=== PATIENT | female | born 2000 | race Caucasian/White ===

== ENCOUNTER 2023-02-07 09:11 | Outpatient (OUT) | payer BC, SELFPAY ==
[2023-02-07 09:29] LABS: Amphetamine Screen Urine NEGATIVE (NEGATIVE); Barbiturates Screen Urine NEGATIVE (NEGATIVE); Benzodiazepines Screen Urine NEGATIVE (NEGATIVE); Buprenorphine Screen Urine NEGATIVE (NEGATIVE); Cannabinoid Screen Urine NEGATIVE (NEGATIVE); Cocaine Screen Urine NEGATIVE (NEGATIVE); Methadone Screen Urine NEGATIVE (NEGATIVE); Methamphetamines Screen Urine NEGATIVE (NEGATIVE); Opiate Screen Urine NEGATIVE (NEGATIVE); Oxycodone Screen Urine NEGATIVE (NEGATIVE); Phencyclidine Screen Urine NEGATIVE (NEGATIVE); Tricyclic Antidepressant Urine NEGATIVE (NEGATIVE)
== END 2023-02-07 09:12 | disposition home or self-care (01) ==
LOC: LAB 09:11
PROVIDERS: PCP Family Medicine; Visit Provider Family Medicine
DX: Z02.0 Encounter for examination for admission to educational institution (principal)
CPT/HCPCS: 80307

== ENCOUNTER 2023-05-10 10:19 | Outpatient (OUT) | payer BC, SELFPAY ==
--- NOTE | 2023-05-10 10:22 | US_ITS ---
[address] [address] Patient Name: LEXY LEONARD MRN: [id number] date: 2000 Sex: F Assigned Patient Location: US Current Patient Location: US Accession/Order Number: [id number] Exam Date: 05/10/2023 10:30 Report Date: 05/10/2023 12:01 At the request of: SERJIO COY Procedure: US pelvis w/ transvaginal EXAMINATION: US pelvis w/ transvaginal HISTORY: Dysfunctional Uterine Bleeding N93.8, Pelvic PAin R10.2 COMPARISON: No relevant comparison available. FINDINGS: The uterus is normal in size, contour and echotexture measuring 6.2 x 4.5 x 2.7 cm. Anteverted. Linear hyperechogenicity within the endometrial cavity consistent with normally positioned IUD. The endometrium measures 2.7 mm thick. Small amount of endometrial fluid, nonspecific The right ovary is normal measuring 2.4 x 2.9 x 1.5 cm. Normal color and Doppler flow. Left ovary is normal in appearance measuring 3.1 x 2.2 x 2.4 cm. Normal color and Doppler flow No free fluid US/US pelvis w/ transvaginal IMPRESSION: Normally positioned IUD Electronically authenticated by: PHILIPP LAU Date: 05/10/2023 12:01
== END 2023-05-10 10:20 | disposition home or self-care (01) ==
LOC: US 10:19
PROVIDERS: Visit Provider Obstetrics & Gynecology
DX: N93.8 Other specified abnormal uterine and vaginal bleeding (principal); R10.2 Pelvic and perineal pain
CPT/HCPCS: 76830; 76856

== ENCOUNTER 2023-06-07 09:00 | Outpatient (OUT) | payer BC, SELFPAY ==
[2023-06-08 07:08] LABS: Hepatitis B Surf Ab Quant >1000.0 mIU/mL (Immunity>9.9)
== END 2023-06-07 09:01 | disposition home or self-care (01) ==
LOC: LAB 09:02
PROVIDERS: PCP Family Medicine; Visit Provider Family Medicine
DX: Z00.8 Encounter for other general examination (principal)
CPT/HCPCS: 36415; 86706

== ENCOUNTER 2023-07-09 10:15 | Outpatient (OUT) | payer BC, SELFPAY ==
[2023-07-09 10:44] LABS: Amphetamine Screen Urine NEGATIVE (NEGATIVE); Barbiturates Screen Urine NEGATIVE (NEGATIVE); Benzodiazepines Screen Urine NEGATIVE (NEGATIVE); Buprenorphine Screen Urine NEGATIVE (NEGATIVE); Cannabinoid Screen Urine NEGATIVE (NEGATIVE); Cocaine Screen Urine NEGATIVE (NEGATIVE); Methadone Screen Urine NEGATIVE (NEGATIVE); Methamphetamines Screen Urine NEGATIVE (NEGATIVE); Opiate Screen Urine NEGATIVE (NEGATIVE); Oxycodone Screen Urine NEGATIVE (NEGATIVE); Phencyclidine Screen Urine NEGATIVE (NEGATIVE); Tricyclic Antidepressant Urine NEGATIVE (NEGATIVE)
== END 2023-07-09 10:16 | disposition home or self-care (01) ==
LOC: LAB 10:16
PROVIDERS: PCP Family Medicine; Visit Provider Family Medicine
DX: Z00.8 Encounter for other general examination (principal)
CPT/HCPCS: 80307

== ENCOUNTER 2023-12-24 21:12 | Outpatient (REF) | payer BC, SELFPAY ==
--- OUTSIDE RECORDS SUMMARY | 2023-12-24 21:18 | XMS_ITS | CCD ---
Author Organization [facility] Care Team Providers Care Shroud Line Tier Name Role Phone SERENA, DR CHITRA Aparicio Attending Unavailable SERENA, DR CHITRA Aparicio Consulting Unavailable SERENA, DR CHITRA Aparicio Primary Care Unavailable LYONS, DR CHITRA Aparicio Admitting Unavailable LYONS, DR CHITRA Aparicio Attending Unavailable LYONS, DR CHITRA Aparicio Consulting Unavailable LYONS, DR CHITRA Aparicio Primary Care Unavailable LYONS, DR CHITRA Aparicio Admitting Unavailable LYONS, DR CHITRA Aparicio Attending Unavailable LYONS, DR CHITRA Aparicio Consulting Unavailable LYONS, DR CHITRA Aparicio Primary Care Unavailable SERENA, DR CHITRA Aparicio Admitting Unavailable Serena LOPEZ, Chitra Primary Care Provider [phone] Serena LOPEZ, Chitra Rea Primary Care Jimmie DALAL, Alice Hunter Attending Unavailable Diane DALAL, Christina Williamson Attending Unavailable Diane DALAL, Christina Williamson Attending Unavailable Serena LOPEZ, Chitra Rea Primary Care Jimmie Arnold MD, Tyler Souza Attending Unav Chitra Heath Unavailable CHITRA LYONS Primary Care Unavailable SERJIO COY Attending Unavailable Allergies Allergy Classification Reported Allergen(s) Allergy Type Date of Onset Reaction(s) Facility (1 source) No Known Medication Allergies; Translations: [No Known Medication Allergies] Propensity to adverse reactions to drug (disorder) [facility] Repository (3 sources) patient allergy list reviewed by nurse or physicia Propensity to adverse reactions 8 Comment:Done [facility] Other (3 sources) Allergies Reconciled Propensity to adverse reactions Unknown [facility] Other Medications Current Medications Medication Drug Class(es) Dates Sig (Normalized) Sig (Original) [id number] 200 actuat albuterol 0.09 mg/actuat metered dose inhaler (1 source) beta2-Adrenergic Agonist Start: 3 End: 3 take 2 puff(s) by inhalation every four hours as needed for wheezing albuterol sulfate HFA (PROVENTIL;VENTOLIN;P ROAIR) 108 (90 Base) MCG/ACT inhaler Inhale 2 puffs into the lungs every 4 hours as needed for Wheezing 8 g 0 09/25/2022 10/02/2022 Active azithromycin 250 mg oral tablet (6 sources) Macrolide Antimicrobial Start: 3 Azithromycin 250 MG as directed Orally 2 tabs po today, then 1 tab daily x 4 more days for 5 Sep, Active 12 hr guaiFENesin 600 mg extended release oral tablet (1 source) Start: 3 End: 3 take 1 tablet by mouth twice daily guaiFENesin (MUCINEX) 600 MG extended release tablet Take 1 tablet by mouth 2 times daily for 10 days 20 tablet 0 09/25/2022 10/05/2022 Active methylPREDNISolone 4 mg oral tablet (1 source) Corticosteroid Start: 3 End: 3 methylPREDNISolone (MEDROL DOSEPACK) 4 MG tablet Take by mouth. 1 kit 0 09/25/2022 10/01/2022 Active Problems Active Problems Problem Classification Problem Date Documented Date Episodic/Chronic Administrative/social admission (4 sources) Encounter for examination for admission to educational institution; Translations: [ENC EXAM ADMIS EDUCATIONAL INSTITUT] Onset: 07-05-2022 Episodic Allergic reactions (3 sources) Allergic contact dermatitis due to plants, except food; Translations: [Allergic contact dermatitis due to plants, except food] Episodic Chronic obstructive pulmonary disease and bronchiectasis (1 source) Bronchitis, not specified as acute or chronic Episodic Contraceptive and procreative management (9 sources) Surveillance of contraception; Translations: [Encounter for contraceptive management, unspecified] Resolved: 12-27-2021 Episodic Deficiency and other anemia (3 sources) Autoimmune hemolytic anemia; 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 Other endocrine disorders (3 sources) Delayed puberty; 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 Other injuries and conditions due to external causes (3 sources) History of fall; Translations: [History of falling] Episodic Other skin disorders (8 sources) Acne; Translations: [Acne, unspecified] Episodic Other skin disorders (1 source) Acne, unspecified; Translations: [Adult acne] Episodic Residual codes; unclassified (5 sources) H/O: blood transfusion; Translations: [Personal history of other medical treatment] Episodic Residual codes; unclassified (1 source) Personal history of other medical treatment; Translations: [History of blood transfusion] Episodic Residual codes; unclassified (3 sources) History of drug therapy; Translations: [Personal history of other drug therapy] Episodic Past or Other Problems Problem Classification Problem Date Documented Date Episodic/Chronic Acute and chronic tonsillitis (3 sources) Acute tonsillitis; Translations: [Acute tonsillitis, unspecified] Resolved: 08-03-2019 Episodic Conditions associated with dizziness or vertigo (3 sources) Dizziness and giddiness; Translations: [Dizziness and giddiness] Onset: 09-10-2016 Resolved: 08-03-2019 Episodic Genitourinary symptoms and ill-defined conditions (3 sources) Dysuria; Translations: [Dysuria] Onset: 02-18-2018 Resolved: 08-03-2019 Episodic Immunizations and screening for infectious disease (3 sources) Sexually transmitted infectious disease; Translations: [Encounter for screening for infections with a predominantly sexual mode of transmission] Resolved: 07-29-2020 Episodic Malaise and fatigue (3 sources) Malaise and fatigue; Translations: [Other malaise and fatigue] Onset: 04-22-2014 Episodic Nausea and vomiting (3 sources) Nausea and vomiting; Translations: [Nausea with vomiting, unspecified] Onset: 09-10-2016 Episodic Other circulatory disease (3 sources) Orthostatic hypotension; Translations: [Orthostatic hypotension] Onset: 09-10-2016 Resolved: 08-03-2019 Episodic Other connective tissue disease (3 sources) Pain in right foot; Translations: [Pain in right foot] Onset: 08-09-2015 Resolved: 08-03-2019 Episodic Other nutritional; endocrine; and metabolic disorders (3 sources) Underweight; Translations: [Underweight] Resolved: 07-29-2020 Episodic Other upper respiratory infections (8 sources) Acute upper respiratory infection; Translations: [Acute upper respiratory infection, unspecified] Onset: 09-10-2016 Resolved: 08-03-2019 Episodic Otitis media and related conditions (3 sources) Acute secretory otitis media; Translations: [Other acute nonsuppurative otitis media, left ear] Onset: 10-21-2015 Resolved: 08-03-2019 Episodic Residual codes; unclassified (3 sources) Not up to date with immunizations; Translations: [Underimmunization status] Resolved: 07-29-2020 Episodic Residual codes; unclassified (3 sources) Normal body mass index; Translations: [Body mass index (BMI) 24.0-24.9, adult] Resolved: 07-29-2020 Episodic Syncope (3 sources) Syncope and collapse; Translations: [Syncope and collapse] Onset: 04-21-2014 Resolved: 08-03-2019 Episodic Viral infection (6 sources) Viral disease; Translations: [Unspecified viral infection, in conditions classified elsewhere and of unspecified site] Onset: 11-21-2015 Resolved: 07-29-2020 Episodic Results Test Name Value Interpretation Reference Range Facility Hep Bs Abon 10-02-2022 Hep B Surface Antibody Interp Positive Normal [facility] Comment on above: Result Comment: Shani ent is considered to be immune to infection with HBV. Performed By: #### H BSAB #### [place] [id number] Hep Bs Ab >500.0 Normal [facility] Comment on above: Performed By: #### H BSAB #### [address] [address] Urgent Care Office/Clinic No ashok 10-01-2022 Urgent Care Office/Clinic Note Chief Complaint pt states since last saturday has been having body aches, cough, congestion. Was seen 09/25 @ [facility] and given inhaler, mucinex. has been using for a week with no relief. History of Present Illness 22-year-old female presents today due to an illness that started 6 days ago. She was seen at [facility] and diagnosed with an upper respiratory infection. She was given albuterol, Mucinex, and an oral steroid. 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 She tells video games storywriter she is fatigued as she is not able to sleep because of her cough. She denies any fevers or chills. She does have a runny nose. She denies any shortness of breath. She denies any sick contacts. Review of Systems General: No fever, chills, body aches. + fatigue. No unexplained weight loss or change in appetite. HEENT: No visual changes, blurred vision, or double vision. No eye pain. No ear pain. No change in hearing or tinnitus. No nasal drainage. + nasal congestion. No sinus pressure. No sore throat. Cardiovascular: No chest pain, palpitations, or syncope. Pulmonary: No shortness of breath, wheezing. + cough. GI: No nausea, vomiting or diarrhea. No abdominal pain. : No dysuria, hematuria, incontinence, frequency or urgency. Endocrine: No reports of sweating, cold or heat intolerance. No polyuria or polydipsia. Musculoskeletal: No weakness, joint pain, back pain. No myalgias. Neuro: No headache. No dizziness, syncope, paralysis, ataxia, numbness or tingling in the extremities. No decrease or change in sensory or motor function. Hematologic: No anemia, bleeding, or bruising. Psychiatric: No history of depression or anxiety Skin: Denies rashes or other acute changes. Physical Exam Vitals & Measurements HR: 72 (Peripheral) BP: 114/78 SpO2: 97 HT: 168 cm WT: 73 kg WT: 73 kg (Dosing) BMI: 25.86 General: The patient is well developed, well nourished, alert and oriented, in no distress Eyes: no conjunctivitis or drainage Ears: TMs are clear translucent with presence of fluid line good light reflex bilaterally. Both canals are without redness swelling or drainage Nose: Erythematous boggy turbinates with clear drainage bilaterally Sinuses: No maxillary or frontal tenderness. Throat: Mild erythema without exudate on the tonsils or swelling, +post nasal drainage Neck: No anterior cervical lymphadenopathy present bilaterally. No posterior cervical lymphadenopathy noted bilaterally Chest: Breath sounds clear without wheezing, Heart: RRR, no murmurs, rubs or gallops. Psych: Normal mood and affect Additional Vitals BP Position/Location: Sitting Assessment/Plan 1. Bronchitis Ordered: Discharge Patient Orders: benzonatate, 1 caps, Oral, TID, PRN, X 7 days, # 21 caps, 0 Refill(s), 10/08/22 11:08:00 EDT, Pharmacy: [facility]/pharmacy #[id number] predniSONE, 2 tabs, Oral, Daily, X 7 days, # 14 tabs, 0 Refill(s), 10/08/22 11:08:00 EDT, Pharmacy: [facility]/pharmacy #[id number] AMB Influenza POC POC SARS Antigen Card Take medications as prescribed. Increase fluid intake and rest. May take Tylenol and ibuprofen as directed on packaging, use a cool mist humidifier, Vicks Vapor rub, and elevating head of bed for sleep. Recommended patient start Zyrtec or Claritin 24-hour- take 1 tablet daily in a.m. Generic is OK. Recommended patient use Flonase, 2 sprays each nostril every AM. Delsym (dextromethorphan) every 12 hours as needed for dry cough. Continue with albuterol Q 4 hrs prn. Follow up with primary care physician in the next 5-7 days or sooner if needed. Go to emergency department for new or worsening of symptoms. Medical Decision Making Chronic conditions NOT treated during this visit that affected my overall medical decision making: Treatment plans discussed but not opted for at this time: Prescribed medication that requires intensive monitoring for toxicity: I have reviewed the patient?s medication list for medication interactions/contrai ndications and/or for upcoming procedures: yes Time Spent with the Patient I have personally spent [] minutes on this date, directly related to today's patient visit, including pre and post visit work, for this date of service. Time listed does not include time spent on separately billable services. Problem List/Past Medical History Ongoing No qualifying data Historical No qualifying data Medications No active medications Allergies No Known Medication Allergies Social History Tobacco Never (less than 100 in lifetime) Use:. Electronically signed by Alice Garcia 10/01/22 11:11 EDT Normal [facility] EKG 12-LEADon 09-25-2022 EKG 12-LEAD 69 69 136 94 398 426 58 65 26 Normal sinus rhythm Normal ECG No previous ECGs available Confirmed by RODRIGUEZ RIBEIRO ([id number]) on 09/25/2022 8:25:29 PM [email or web address] [email or web address]?[email or web address]=[id number]&Date=01-22-20 23&Time=09%3a39%3a52 %3a00&TestType=ECG&S ite=3&OutputType=PDF &Ext=PDF Normal [facility] Influenza virus A and B RNA and SARS-CoV-2 (COVID-19) N gene panel BRANDON+probe (Resp)on 09-25-2022 FLUAV RNA BRANDON+probe Ql (Resp) Not detected NOT DETECTED [employer] FLUBV RNA BRANDON+probe Ql (Resp) Not detected NOT DETECTED [facility] [employer] Comment on above: Performed at [facility] [employer] [facility] [address] [place] [address] SARS-CoV-2 (COVID-19) RNA BRANDON+probe Ql (Resp) Not detected NOT DETECTED [facility] [employer] Comment on above: Not Detected results do not preclude SARS-CoV-2 infection and should not be used as the sole basis for patient management decisions. Results must be combined with clinical observations, patient history, and epidemiological information. Testing was performed using [employer] SARS-CoV-2 and Influenza A/B nucleic acid assay. This test is a multiplex Real-Time Reverse Transcriptase Polymerase Chain Reaction (RT-PCR)-based in vitro diagnostic test intended for the qualitative detection of nucleic acids from SARS-CoV-2, influenza A, and influenza B in nasopharyngeal and nasal swab specimens for use under the FDA s Emergency Use Authorization (EUA) only. Fact sheet for Healthcare Providers: https://www.fda.gov/media/274326/download Fact sheet for Patients: https://www.fda.gov/media/896693/download [employer] S. pyogenes Ag EIA Ql (Throa t)on 09-25-2022 S. pyogenes Ag Ql (Throat) Negative NEGATIVE [employer] S. pyogenes Org specific cx Ql (Throat) INDICATED [facility] [employer] Comment on above: Performed at [facility] [employer] [facility] [address] [place], [place] [id number] [employer] [employer] XR CHEST (2 VW)on 09-25-2022 1. No acute cardiopulmonary finding. This report has been created using voice recognition software. It may contain minor errors which are inherent in voice recognition technology. Final report electronically signed by Dr Beverley Dickerson on 09/25/2022 11:59 AM [facility] Beverley River MD - 09/25/2022 PROCEDURE: XR CHEST (2 VW) CLINICAL INFORMATION: cough, chest congestion COMPARISON: None TECHNIQUE: PA and lateral views of the chest performed. FINDINGS: No focal pulmonary consolidation. Cardiac silhouette is not enlarged. No pleural effusion. No pneumothorax. No acute bony abnormality. IMPRESSION: 1. No acute cardiopulmonary finding. This report has been created using voice recognition software. It may contain minor errors which are inherent in voice recognition technology. Final report electronically signed by Dr Beverley Dickerson on 09/25/2022 11:59 AM [employer] Phone: Radiology Study observation (narrative) [employer] Phone: XR CHEST (2 VW)Ordered By: Loree Dickerson on 09-25-2022 [employer] Phone: HEPATITIS B SURFACE ANTIBODY , QUANTon 07-06-2022 Hepatitis B Surf AB Quant >1000.0 Normal Immunity>9.9 [facility] Comment on above: Result Comment: Stat us of Immunity Anti-HBs Level Inconsistent with Immunity 0.0 - 9.9 Consistent with Immunity >9.9 Performed By: #### H EPBSRF #### [facility] [address] [place], [place] [address] Dr. Jesus Mei DRUG SCREEN RAPID (URINE)on 07-05-2022 AMP Negative Normal NEGATIVE [facility] Comment on above: Performed By: #### D RUGRPD #### [facility] [address] [place], [place] [address] Dr. Jesus Mei BAR Negative Normal NEGATIVE [facility] Comment on above: Performed By: #### D RUGRPD #### [facility] [address] [place] [address] Dr. Jesus Mei BUP Negative Normal NEGATIVE [facility] Comment on above: Performed By: #### D RUGRPD #### [facility] [address] [place] [address] Dr. Jesus Mei BZO Negative Normal NEGATIVE [facility] Comment on above: Performed By: #### D RUGRPD #### [facility] [address] [place] [address] Dr. Jesus Mei CHRISTINA Negative Normal NEGATIVE [facility] Comment on above: Performed By: #### D RUGRPD #### [facility] [address] [place] [address] Dr. Jesus Mei CUT-OFFS SEE BELOW Normal [facility] Comment on above: Result Comment: AMP (Amphetamine): 500ng/mL, BAR (Barbituates): 200 ng/mL, BZO (Benzodiazepines): 150 ng/mL, BUP (Buprenorphine): 10 ng/mL, CHRISTINA (Cocaine): 150 ng/mL, mAMP (Methamphetamine): 500 ng/mL, MTD (Methadone): 200 ng/mL, OPI (Opiates): 100 ng/mL, OXY (Oxycodone): 100 ng/mL, PCP (Phencyclidine): 25 ng/mL, PPX (Propoxyphene): 300 ng/mL, THC (Cannabinoids): 50 ng/mL, TCA (Trycyclic Antidepressants): 300 ng/mL Performed By: #### D RUGRPD #### [facility] [address] [place] [address] Dr. Jesus Mei DRUG CUT HEADER DRUG CLASS TEST SYSTEM CUT-OFF CONCENTRATIONS ARE FOLLOWS: Normal [facility] Comment on above: Performed By: #### D RUGRPD #### [facility] [address] [place] [address] Dr. Jesus Mei mAMP Negative Normal NEGATIVE [facility] Comment on above: Performed By: #### D RUGRPD #### [facility] [address] [place] [address] Dr. Jesus Mei MTD Negative Normal NEGATIVE [facility] Comment on above: Performed By: #### D RUGRPD #### [facility] [address] [place] [address] Dr. Jesus Mei OPI Negative Normal NEGATIVE [facility] Comment on above: Performed By: #### D RUGRPD #### [facility] [address] [place] [address] Dr. Jesus Mei OXY Negative Normal NEGATIVE [facility] Comment on above: Performed By: #### D RUGRPD #### [facility] [address] [place] [address] Dr. Jesus Mei PCP Negative Normal NEGATIVE [facility] Comment on above: Performed By: #### D RUGRPD #### [facility] [address] [place] [address] Dr. Jesus Mei PPX Negative Normal NEGATIVE [facility] Comment on above: Performed By: #### D RUGRPD #### [facility] [address] [place] [address] Dr. Jesus Mei TCA Negative Normal NEGATIVE [facility] Comment on above: Performed By: #### D RUGRPD #### [facility] [address] [place] [address] Dr. Jesus Mei THC Negative Normal NEGATIVE [facility] Comment on above: Performed By: #### D RUGRPD #### [facility] [address] [place] [address] Dr. Jesus Mei DRUG SCREEN RAPID (URINE)on 02-09-2022 AMP Negative Normal NEGATIVE [facility] Comment on above: Performed By: #### D RUGRPD #### [facility] [address] [place] [address] Dr. Jesus Mei BAR Negative Normal NEGATIVE [facility] Comment on above: Performed By: #### D RUGRPD #### [facility] [address] [place] [address] Dr. Jesus Mei BUP Negative Normal NEGATIVE [facility] Comment on above: Performed By: #### D RUGRPD #### [facility] [address] [place] [address] Dr. Jesus Mei BZO Negative Normal NEGATIVE [facility] Comment on above: Performed By: #### D RUGRPD #### [facility] [address] [place] [address] Dr. Jesus Mei CHRISTINA Negative Normal NEGATIVE [facility] Comment on above: Performed By: #### D RUGRPD #### [facility] [address] [place] [address] Dr. Jesus Mei CUT-OFFS SEE BELOW Normal [facility] Comment on above: Result Comment: AMP (Amphetamine): 500ng/mL, BAR (Barbituates): 200 ng/mL, BZO (Benzodiazepines): 150 ng/mL, BUP (Buprenorphine): 10 ng/mL, CHRISTINA (Cocaine): 150 ng/mL, mAMP (Methamphetamine): 500 ng/mL, MTD (Methadone): 200 ng/mL, OPI (Opiates): 100 ng/mL, OXY (Oxycodone): 100 ng/mL, PCP (Phencyclidine): 25 ng/mL, PPX (Propoxyphene): 300 ng/mL, THC (Cannabinoids): 50 ng/mL, TCA (Trycyclic Antidepressants): 300 ng/mL Performed By: #### D RUGRPD #### [facility] [address] [place] [address] Dr. Jesus Mei DRUG CUT HEADER DRUG CLASS TEST SYSTEM CUT-OFF CONCENTRATIONS ARE FOLLOWS: Normal [facility] Comment on above: Performed By: #### D RUGRPD #### [facility] [address] [place] [address] Dr. Jesus Mei mAMP Negative Normal NEGATIVE [facility] Comment on above: Performed By: #### D RUGRPD #### [facility] [address] [place] [address] Dr. Jesus Mei MTD Negative Normal NEGATIVE [facility] Comment on above: Performed By: #### D RUGRPD #### [facility] [address] [place] [address] Dr. Jesus Mei OPI Negative Normal NEGATIVE [facility] Comment on above: Performed By: #### D RUGRPD #### [facility] [address] [place] [address] Dr. Jesus Mei OXY Negative Normal NEGATIVE [facility] Comment on above: Performed By: #### D RUGRPD #### [facility] [address] [place] [address] [address] Jesus Mei PCP Negative Normal NEGATIVE [facility] Comment on above: Performed By: #### D RUGRPD #### [facility] [address] [place] [address] [address] Jesus Mei PPX Negative Normal NEGATIVE [facility] Comment on above: Performed By: #### D RUGRPD #### [facility] [address] [place] [address] Dr. Jesus Mei TCA Negative Normal NEGATIVE [facility] Comment on above: Performed By: #### D RUGRPD #### [facility] [address] [place] [address] Dr. Jesus Mei THC Negative Normal NEGATIVE [facility] Comment on above: Performed By: #### D RUGRPD #### [facility] [address] [place] [address] Dr. Jesus Mei C BP Strepon 10-19-2021 S. pyogenes Ag IA Ql (Unsp spec) Automatically ordered based on Negative Rapid Strep POC Test This is strictly a screening test for Strep Group A( Streptococcus pyogenes). No other pathogens will be noted. ------- Final Backup plate negative for Group A Streptococus Resulted at [facility] Comment on above: Performed By: #### B P #### [facility] [address] [place] [address] [facility] [address] [place] [address] Urgent Care Office/Clinic No ashok 10-17-2021 Urgent Care Office/Clinic Note Chief Complaint sore throat started Sat then woke up Saturday with loss of voice History of Present Illness Pleasant 21-year-old female presents for evaluation of sore throat that began 3 days ago and loss of voice that began 2 days ago. She reports that she has been afebrile. She does admit to some mild sinus congestion with rhinorrhea and intermittent dry cough. She denies chest pain, wheezing, shortness of breath, or GI concerns. Patient denies any known exposure to COVID-19 or other sick contacts. Denies history of strep pharyngitis. She has continued to tolerate adequate oral intake of food and fluids. Review of Systems General: No fever, chills, body aches or fatigue. No unexplained weight loss or change in appetite. HEENT: No visual changes, blurred vision, or double vision. No eye pain. No ear pain. No change in hearing or tinnitus. + Mild sinus congestion with rhinorrhea. No sinus pressure. + Sore throat. + Loss of voice. Cardiovascular: No chest pain, palpitations, or syncope. Pulmonary: + Intermittent dry cough. No wheezing or shortness of breath. GI: No nausea, vomiting or diarrhea. No abdominal pain. Musculoskeletal: No weakness, joint pain, back pain. Neuro: No headache. No dizziness. Skin: Denies rashes or other acute changes. Physical Exam Vitals & Measurements T: 36.5 ?C (Oral) HR: 63 (Peripheral) RR: 16 BP: 115/73 SpO2: 98 HT: 170 cm WT: 75 kg WT: 75 kg (Dosing) BMI: 25.95 General: Well-developed, in no acute distress. Neuro: Alert and oriented. Gait is steady. Speech is clear and appropriate. Eyes: PERRL. Conjunctiva clear without erythema or drainage. Nose: No erythema, edema, drainage. Ears: Canals visualized without any erythema, edema, or discharge. TM's visible and intact, pearly null. Good light reflex. Pharynx: Posterior oropharynx moist, pink without erythema, edema, or exudate. Mucous membranes moist. Voice hoarseness and intermittent loss of voice noted on exam. Neck: Trachea midline. No lymphadenopathy. Lungs: Respirations quiet, nonlabored, no audible wheezing. Musculoskeletal: Full AROM of the upper and lower extremities. Normal tone and strength 5/5 for both upper and lower extremities bilaterally. Skin: Warm, dry, intact. No rashes, lesions, or open wounds. Rapid strep: Negative Backup strep culture sent to the lab for evaluation with results pending. Additional Vitals No qualifying data available. Assessment/Plan 1. Laryngitis Strep today is negative. Will send for culture to [facility] and notify if it returns positive. Rest your voice until it recovers. Talk as little as possible. If your symptoms are severe, rest at home for a day or so. Drink warm liquids with honey. Breathing cool steam from a humidifier/vaporizer or in a steamy shower may be helpful. Drink plenty of fluids to stay well hydrated. Do not smoke. Follow-up with your family doctor in 1 week if no relief in symptoms. Go to the emergency department for any new or worsening symptoms. Orders: [id number] AMB Rapid Strep POC Medical Decision Making Patient is well and nontoxic-appearing upon evaluation. Vital signs are stable. Reviewed assessment and plan of care with patient. Patient verbalized understanding and agreed with plan. No further questions or concerns upon discharge. Chronic conditions NOT treated during this visit that affected my overall medical decision making: [] Treatment plans discussed but not opted for at this time: [] Prescribed medication that requires intensive monitoring for toxicity: [] I have reviewed the patient?s medication list for medication interactions/contrai ndications and/or for upcoming procedures: [yes] Time Spent with the Patient I have personally spent [12] minutes on this date, directly related to today's patient visit, including pre and post visit work, for this date of service. Time listed does not include time spent on separately billable services. Problem List/Past Medical History Ongoing No qualifying data Historical No qualifying data Medications No active medications Allergies No Known Medication Allergies Social History Tobacco Never (less than 100 in lifetime) Use:. Lab Results Test Name Test Result Date/Time Rapid Strep Test POC Negative 10/17/2021 15:08 EDT Electronically signed by Christina Martínez 10/17/21 15:20 EDT Normal [facility] DRUGS OF ABUSE 10 PANEL w/CO NFIRMon 07-19-2021 Amphetamines Screen, Urine Negative Normal Jpikmq=2009 [facility] Comment on above: Performed By: #### 1 0PDRUG #### [facility] [address] [address] [address] Jesus Mei Barbiturates Screen, Urine Negative Normal Tnwptv=205 [facility] Comment on above: Performed By: #### 1 0PDRUG #### [facility] [address] [address] [address] Jesus Mei Benzodiazepines Screen, Urine Negative Normal Krbsrw=454 [facility] Comment on above: Performed By: #### 1 0PDRUG #### [facility] [address] [address] [address] Jesus Mei Cannabinoid Screen, Urine Negative Normal Cutoff=20 [facility] Comment on above: Performed By: #### 1 0PDRUG #### [facility] [address] [address] [address] Jesus Mei Cocaine (Metab.) Screen, Urine Negative Normal Reicyu=561 [facility] Comment on above: Performed By: #### 1 0PDRUG #### [facility] [address] [address] [address] Jesus Mei Creatinine, Urine 45.9 mg/dL Normal 20.0-300.0 [facility] Comment on above: Performed By: #### 1 0PDRUG #### [facility] [address] [address] [address] Jesus Mei Methadone Screen, Urine Negative Normal Orwtsw=944 [facility] Comment on above: Performed By: #### 1 0PDRUG #### [facility] [address] [address] [address] Jesus Mei Opiate Screen, Urine Negative Normal Oldfbx=202 [facility] Comment on above: Result Comment: Opia te test includes Codeine, Morphine, Hydromorphone, Hydrocodone. Performed By: #### 1 0PDRUG #### [facility] [address] [place] [address] Dr. Jesus Mei Oxycodone/Oxymorphon e, Urine Negative Normal Ezjill=403 [facility] Comment on above: Result Comment: Test includes Oxycodone and Oxymorphone Performed By: #### 1 0PDRUG #### [facility] [address] [address] [address] Jesus Mei pH (U) 6.6 [pH] Normal 4.5-8.9 [facility] Comment on above: Performed By: #### 1 0PDRUG #### [facility] [address] [address] [address] Jesus Mei Phencyclidine Screen, Urine Negative Normal Cutoff=25 [facility] Comment on above: Performed By: #### 1 0PDRUG #### [facility] [address] [address] [address] Jesus Mei Please Note: Comment Normal [facility] Comment on above: Result Comment: Drug -test results should be interpreted in the context of clinical information. Patient metabolic variables, specific drug chemistry, and specimen characteristics can affect test outcome. Technical consultation is available if a test result is inconsistent with an expected outcome. ([email or web address] or call toll-free [phone]) . Drug brands, if listed herein, are trademarks of their respective owners. Performed By: #### 1 0PDRUG #### [facility] [address] [address] [address] Jesus Mei Propoxyphene Screen, Urine Negative Normal Uhuvbm=836 [facility] Comment on above: Performed By: #### 1 0PDRUG #### [facility] [address] [place] [address] Dr. Jesus Mei Vital Signs Date Time Vital Sign Value Performing Clinician Facility 10-12-2022 12:00-0400 Body height 167.64 cm Chitra Lyons Other [facility] Other 10-12-2022 12:00-0400 Body mass index (BMI) [Ratio] 26.31 kg/m2 Chitra Lyons Other [facility] Other 10-12-2022 12:00-0400 Body temperature 98.7 [degF] Chitra Lyons Other [facility] Other 10-12-2022 12:00-0400 Body weight 73.94 kg Chitra Lyons Other [facility] Other 10-12-2022 12:00-0400 Diastolic blood pressure 64 mm[Hg] Chitra Lyons Other [facility] Other 10-12-2022 12:00-0400 SaO2% (BldA) [Mass fraction] 98 % Chitra Lyons Other [facility] Other 10-12-2022 12:00-0400 Systolic blood pressure 110 mm[Hg] Chitra Lyons Other [facility] Other 09-25-2022 09:47-0500 Body temperature 97.5 [degF] Chitra Lyons MD Work Phone: [employer] 09-25-2022 09:43-0500 Body height 167.6 cm Chitra Lyons MD Work Phone: [employer] 09-25-2022 09:43-0500 Body mass index (BMI) [Ratio] 25.82 kg/m2 Chitra Lyons MD Work Phone: [employer] 09-25-2022 09:43-0500 Body weight 72.58 kg Chitra Lyons MD Work Phone: [employer] 09-25-2022 09:43-0500 Diastolic blood pressure 76 mm[Hg] Chitra Lyons MD Work Phone: [employer] 09-25-2022 09:43-0500 Heart rate 66 /min Chitra Lyons MD Work Phone: [employer] 09-25-2022 09:43-0500 Respiratory rate 16 /min Chitra Lyons MD Work Phone: [employer] 09-25-2022 09:43-0500 SaO2% (BldA) [Mass fraction] 100 % Chitra Lyons MD Work Phone: [facility] 09-25-2022 09:43-0500 Systolic blood pressure 124 mm[Hg] Chitra Lyons MD Work Phone: [facility] Encounters Encounter Date Encounter Type Care Provider Facility Start: 11-07-2023 End: 11-07-2023 ambulatory SERJIO COY Not Available Start: 07-05-2023 End: 07-05-2023 ambulatory Chitra Lyons Other [facility] Other Start: 07-05-2023 Physical examination Chitra Lyons [facility] Start: 07-05-2023 Telephone encounter Chitra Lyons [facility] Start: 06-11-2023 End: 06-11-2023 ambulatory Chitra Lyons Other [facility] Other Start: 06-11-2023 Telephone encounter Chitra Lyons [facility] Start: 06-05-2023 End: 06-05-2023 ambulatory Chitra Lyons Other [facility] Other Start: 06-05-2023 Physical examination Chitra Lyons [facility] [place] [facility] Start: 06-05-2023 Telephone encounter Chitra Lyons [facility] Start: 02-07-2023 End: 02-07-2023 ambulatory Chitra Lyons Other [facility] Other Start: 02-07-2023 Telephone encounter Chitra Lyons [facility] Start: 01-31-2023 End: 01-31-2023 ambulatory Chitra Lyons Other [facility] Other Start: 01-31-2023 Telephone encounter Chitra Lyons [facility] Start: 10-12-2022 End: 10-12-2022 ambulatory Chitra Lyons Other [facility] Other Start: 10-12-2022 Office outpatient vi sit 15 minutes Chitra Lyons [facility] Start: 10-02-2022 End: 10-03-2022 ambulatory Chitra Lyons MD Facility:[facility] Start: 10-01-2022 End: 10-01-2022 ambulatory Chitra Lyons MD Facility:[facility] Start: 09-25-2022 End: 09-25-2022 Emergency department patient visit CHITRA LYONS [facility] Start: 09-25-2022 End: 09-25-2022 Emergency department patient visit Chitra Lyons MD Work Phone: [facility] Comment on above: Acute upper respirat ory infection (Primary Dx) Start: 07-05-2022 End: 07-06-[address] CHITRA LYONS Facility:[facility] Start: 02-09-2022 End: 02-10-[address] CHITRA LYONS Facility:[facility] Start: 10-17-2021 End: 10-18-2021 ambulatory Christina Contreras FULL STACK DEVEL[employer]ASS [employer] Facility:[facility] Start: 07-17-2021 End: 07-18-[address] CHITRA LYONS Facility:[facility] Start: 07-29-2020 End: 07-29-2020 Gynecological examination normal Chitra Lyons Other [facility] Other Start: 08-03-2019 End: 08-03-2019 Well child visit Chitra Lyons Other [facility] Other Procedures Date Procedure Procedure Detail Performing Clinician Start: 09-25-2022 Radiologic exam ches t 2 views Shameka Merino FULL STACK DEVELOPER - [employer]ASS [employer] Work Phone: Start: 09-25-2022 Streptococcus pyogen es Ag [Presence] in Throat by Immunoassay Shameka Merino FULL STACK DEVELOPER - GLASS MAKER Work Phone: Start: 09-25-2022 Influenza virus A an d B RNA and SARS-CoV-2 (COVID-19) N gene panel - Respiratory specimen by BRANDON with probe detection Shameka Merino FULL STACK DEVELOPER - [employer]ASS [employer]KER Work Phone: Start: 03-07-2023 Ecg routine ecg w/le ast 12 lds w/i&r Shameka Merino FULL STACK DEVELOPER - [employer]ASS MAKER Work Phone: Start: 11-29-2021 End: 12-27-2021 Insertion of intrauterine contraceptive device Chitra Lyons Other Depression screening Chitra Lyons Other School admission med ical examination Chitra Serena Other Plan of Treatment Date Care Activity Detail Author Start: 02-03-2024 DTaP/Tdap/Td vaccine (7 - Td or Tdap) DTaP/Tdap/Td vaccine (7 - Td or Tdap) [employer] Start: 2022 Screening for malign ant neoplasm of cervix Pap smear [employer] Start: 02-22-2022 COVID-19 Vaccine (2 - Pfizer series) COVID-19 Vaccine (2 - Pfizer series) [employer] Start: 2019 Hepatitis C screening Hepatitis C sc reen [employer] Start: 2017 Screening for Chlamy david trachomatis Chlamydia/GC screen [employer] Start: 2016 HIV screening HIV screen [employer] Start: 2013 Depression Screen Depression Screen [employer] Start: 2012 HPV vaccine (1 - 2-d ose series) HPV vaccine (1 - 2-dose series) [employer] Bacteria identified in Throat by [employer] culture Culture, Throat Microbiology Routine 09/25/2022 10:20 AM EST [employer] Work Phone: End: 09-25-2022 Culture, Throat Culture, Throat Microbiology Routine Once for 1 Occurrences starting 09/25/2022 until 09/25/2022 [employer] Comment on above: Once for 1 Occurrenc es starting 09/25/2022 until 09/25/2022 EKG 12 Lead EKG 12 Lead ECG STAT 09/25/2022 9:39 AM EST [employer] Work Phone: Immunizations Immunization Date Immunization Notes Care Provider Cristi mcgill 02-11-2019 meningococcal B, unspecified formulation Chitra Lyons Other [facility] Other Payers Date Payer Category Payer Unknown [id number]. [id number] 2021 Unknown 2019 Unknown [id number] 2001 Unknown [id number] [id number] 2001 Unknown [id number] 2.16.84 [id number] 2001 Unknown [id number] 2.16.84 [id number] 2001 Unknown [id number] 2.16. [id number] 2001 Unknown [id number] 2.16. [id number] 2001 Unknown [id number] 2.16. [id number] 2001 Unknown [id number] 2.16. [id number] 2001 Unknown [id number] 2.16.84 [id number] Social History Date Type Detail Facility Tobacco smoking status [facility] Tobacco smoking consumption unknown [facility] [employer] Phone: Start: 2000 Sex Assigned At Not on file [facility] [employer] Phone: Start: 09-15-2022 End: 09-25-2022 Exposure to SARS-CoV-2 (event) Not sure [employer] Phone: Sex Assigned At Sex Assigned At Bir th [facility] Other Clinical Notes 10-17-2021 to 07-05-2023 Note Date & Type Note Facility 07-05-2023 Evaluation note Encounter Date Diagnosis Assessment Notes Jun, Encounter for physical examination of student (ICD-10 - Z00.8) [facility] Other 11-15-2023 Evaluation note* Encounter Date Diagnosis Assessment Notes Treatment Notes Treatment Clinical Notes May, Encounter for physical examination of student (ICD-10 - Z00.8) [facility] Other 03-24-2023 Evaluation note* Encounter Date Diagnosis Assessment Notes Treatment Notes Treatment Clinical Notes Sep, Bronchitis (ICD-10 - J40) Finish antibiotic. Still has inhaler from other facility if needed. [facility] Other 03-13-2023 NotePatient Education Materials Name: Dinora Ann Current Date: 10/01/2022 11:20:26 Vivian/[facility] : 2000 The following sheet(s) are the Patient Education Leaflets for Dinora Ann Ambulatory Viral Bronchitis (Adult) You have a viral bronchitis. Bronchitis is inflammation and swelling of the lining of the lungs. This is often caused by an infection. Symptoms include a dry, hacking cough that is worse at night. The cough may bring up yellow-green mucus. You may also feel short of breath or wheeze. Other symptomsmay include tiredness, chest discomfort, and chills. Bronchitis that is caused by a virus is not treated with antibiotics. Instead, medicines may be given to help relieve symptoms. Symptoms can last up to 2 weeks, although the cough may last much longer. This illness is contagious during the first few days and is spread through the air by coughing and sneezing, or by direct contact (touching the sick person and then touching your own eyes, nose, or mouth). Most viral illnesses resolve within 10 to 14 days with rest and simple home remedies, although theymay sometimes last for several weeks. Home care ? If symptoms are severe, rest at home for the first 2 to 3 days. When you go back to your usual activities, don't let yourself get too tired. ? Do not smoke. Also avoid being exposed to secondhand smoke. ? You may use wjoe-hgx-egdhlcu medicine to control fever or pain, unless another pain medicine was prescribed. If you have chronic liver or kidney disease or have ever had a stomach ulcer or gastrointestinal bleeding, talk with your healthcare provider before using these medicines. Also talk to your provider if you are taking medicine to prevent blood clots. Aspirin should never be given to anyone younger than 18 years of age who is ill with a viral infection or fever. It may cause severe liveror brain damage. ? Your appetite may be poor, so a light diet is fine. Avoid dehydration by drinking 6 to 8 glasses of fluids per day (such as water, soft drinks, sports drinks, juices, tea, or soup). Extra fluids will help loosen secretions in the nose and lungs. ? Uwom-vzg-hxrfbyd cough, cold, and sore-throat medicines will not shorten the length of the illness, but they may help to reduce symptoms. Don't use decongestants if you have high blood pressure. Follow-up care Follow up with your healthcare provider, or as advised. If you had an X-ray or ECG (electrocardiogram), a specialist will review it. You will be notified of any new findings that may affect your care. If you are age 65 or older, or if you have a chronic lung disease or condition that affects your immune system, or you smoke, ask your healthcare provider about getting a pneumococcal vaccine and a yearly flu shot (influenza vaccine). When to seek medical advice Call your healthcare provider right away if any of these occur: ? Fever of 100.4?F (38?C) or higher, or as directed by your healthcare provider ? Coughing up increased amounts of colored sputum ? Weakness, drowsiness, headache, facial pain, ear pain, or a stiff neck Call 911 Call 911 if any of these occur: ? Coughing up blood ? Worsening weakness, drowsiness, headache, or stiff neck ? Trouble breathing, wheezing, or pain with breathing ? [id number] [employer]. [address] [place] [address], [place] [address]. All rights reserved. This information is not intended as a substitute for professional medical care. Always follow your healthcare professional's instructions. Take medications as prescribed. Increase fluid intake and rest. May take Tylenol and ibuprofen as directed on packaging, use a cool mist humidifier, Vicks Vapor rub, and elevating head of bed for sleep. Recommended patient start Zyrtec or Claritin 24-hour- take 1 tablet daily in a.m. Generic is OK. Recommended patient use Flonase, 2 sprays each nostril every AM. Delsym (dextromethorphan) every 12 hours as needed for dry cough. Continue with albuterol Q 4 hrs prn. Follow up with primary care physician in the next 5-7 days or sooner if needed. Go to emergency department for new or worsening of symptoms.[facility]03-07-2023 NotePROCEDURE: XR CHEST (2 VW) CLINICAL INFORMATION: cough, chest congestion COMPARISON: None TECHNIQUE: PA and lateral views of the chest performed. FINDINGS: No focal pulmonary consolidation. Cardiac silhouette is not enlarged. No pleural effusion. No pneumothorax. No acute bony abnormality. IMPRESSION: 1. No acute cardiopulmonary finding. This report has been created using voice recognition software. It may contain minor errors which are inherent in voice recognition technology. Final report electronically signed by Dr Beverley Dickerson on 09/25/2022 11:59 AM Interpreted by: Beverley Dickerson MD Signed by: Beverley Dickerson MD 09/25/22 [facility] Discharge instructions* Discharge Instructions* RAMON Mahmood CNP - 09/25/2022 12:06 PM EST Rest, Stay well-hydrated. Oxec-tog-ryvqewg Tylenol and/or Motrin as needed for fever, aches or pain. Albuterol as needed for shortness of breath and wheezing. Mucinex as prescribed for the next 10 days. Medrol Dosepak as prescribed. Follow-up with primary care doctor within the next week for reevaluation. If any worsening or concerns seek medical attention promptly. * Attachments The following attachments cannot be sent through Care Everywhere. * URI (Upper Respiratory Infection) (French) * URI (Upper Respiratory Infection): Viral (French) documented in this encounterB[facility] Work Phone: 1(689) 583-309803-07-2023 NotePROCEDURE: XR CHEST (2 VW) CLINICAL INFORMATION: cough, chest congestion COMPARISON: None TECHNIQUE: PA and lateral views of the chest performed. FINDINGS: No focal pulmonary consolidation. Cardiac silhouette is not enlarged. No pleural effusion. No pneumothorax. No acute bony abnormality. [facility] [id number] NotePatient Education Materials Name: Dinora Ann Current Date: 10/17/2021 15:21:23 [place]ian/[place] : 2000 The following sheet(s) are the Patient Education Leaflets for Dinora Ann Ambulatory Laryngitis Laryngitis is a swelling of the tissues around the vocal cords. Symptoms include a hoarse (scratchy) voice. Or your voice may be gone for a few days or longer. This may be caused by a viral illness, such as a head or chest cold. It may also be due to overuse and strain of your voice. Smoking, drinking alcohol, acid reflux, allergies, or inhaling harsh chemicals may also lead to symptoms. This condition will usually go away in 1 to 2 weeks. Home care ? Rest your voice until it recovers. Talk as little as possible. If your symptoms are severe, rest at home for a day or so. ? Moist air may help your symptoms. Try breathing cool steam from a humidifier or vaporizer. Or breathe air from a steamy shower. ? Drink plenty of fluids to stay well hydrated. ? Don't smoke Follow-up care Follow up with your healthcare provider or this facility if you are not better after 1 week. If your hoarse voice lasts more than 2 weeks, you may need to see an assembly line upholsterer. This is a doctor who treats diseases and disorders of the ear, nose, and throat (ENT). Seeing this doctor is especiallyimportant if you have a history of alcohol or tobacco use. When to seek medical advice Contact your healthcare provider right away if you have any of the following: ? Symptoms that get worse ? Severe pain with swallowing ? Trouble opening your mouth ? Neck swelling, neck pain, or trouble moving your neck ? Fever of 100.4?F (38.?C) or higher, or as directed by your healthcare provider ? Symptoms do not go away in 2 weeks Call 911 Call 911 or seek immediate medical care if you have any of the following: ? Noisy breathing or trouble breathing ? Drooling or not able to swallow ? Not able to talk ? Feeling dizzy or lightheaded ? [phone] [employer] [place] [address]. All rights reserved. This information is not intended as a substitute for professional medical care. Always follow your healthcare professional's instructions. Strep today is negative. Will send for culture to [facility] and notify if it returns positive. Rest your voice until it recovers. Talk as little as possible. If your symptoms are severe, rest athome for a day or so. Drink warm liquids with honey. Breathing cool steam from a humidifier/vaporizer or in a steamy shower may be helpful. Drink plenty of fluids to stay well hydrated. Do not smoke. Follow-up with your family doctor in 1 week if no relief in symptoms. Go to the emergency department for any new or worsening symptoms.[facility] Acute upper respiratory infection- Primary Acute upper respiratory infections of unspecified site documented in this encounter [employer] Work Phone: evaluation noteNo InformationNoellett [facility] [place] Other History general Narrative - Reported* Type Description Date Medical History History of blood transfusion Medical History Adult acne Surgical History MYORINGOTOMY WITH TUBE PLACEMEN T - BILATERAL Surgical History PE TUBES Hospitalization History SEE SURGICAL HX [facility] Other Summary Purpose Family History No Family History Records FoundNo Family History Records FoundNo Family History Records FoundNo Family History Records Found Advance Directives No Advanced Directives Records FoundNo Advanced Directives Records FoundNo Advanced Directives Records FoundNo Advanced Directives Records Found Additional Source Comments INFORMATION SOURCE (unrecogn ized section and content) DATE CREATED AUTHOR 07/12/2022 Fabian jimenes DATE CREATED AUTHOR AUTHOR'S ORGANIZ ATION 10/03/2022 [facility] DATE CREATED AUTHOR AUTHOR'S ORGANIZ ATION 10/24/2022 [facility] DATE CREATED AUTHOR AUTHOR'S ORGANIZ ATION 11/08/2023 [facility] EP[facility] Reason for Visit (unrecogniz ed section and content) Reason Comments Fever Generalized Body Aches Chest Pain Ordered Prescriptions (unrec ognized section and content) Prescription Sig Dispensed Refills Start Date End Da te methylPREDNISolone (MEDROL DOSEPACK) 4 MG tablet Take by mouth. 1 kit 0 09/25/2022 10/01/2022 albuterol sulfate HFA (PROVENTIL;VENTOLIN;PROA IR) 108 (90 Base) MCG/ACT inhaler Inhale 2 puffs into the lungs every 4 hours as needed for Wheezing 8 g 0 09/25/2022 10/02/2022 guaiFENesin (MUCINEX) 600 MG extended release tablet Take 1 tablet by mouth 2 times daily for 10 days 20 tablet 0 09/25/2022 10/05/2022 Care Teams (unrecognized sec tion and content) [place] Tier Relationship Specialty Start Date End Date Chitra Lyons MD [address] [place] [address] PCP - General Family Medicine 09/25/22 FOR RECORDS PERTAINING TO PATIENTS WHO ARE OR HAVE BEEN ENROLLED IN A CHEMICAL DEPENDENCY/SUBSTANCEABUSE PROGRAM, SOME INFORMATION MAY BE OMITTED. This clinical summary was aggregated from multiple sources. Caution should be exercised in using it in the provision of clinical care. This summary normalizes information from multiple sources, and as a consequence, information in this document may materially change the coding, format and clinical context of patient data. In addition, data may be omitted in some cases. CLINICAL DECISIONS SHOULD BE BASED ON THE PRIMARY CLINICAL RECORDS. [email or web address] provides no warranty or guarantee of the accuracy or completeness of information in this document.
== END 2023-12-24 21:13 | disposition home or self-care (01) ==
LOC: LAB 21:12
PROVIDERS: PCP Family Medicine; Visit Provider Obstetrics & Gynecology
DX: Z01.419 Encounter for gynecological examination (general) (routine) without abnormal findings (principal)
CPT/HCPCS: 88175

== ENCOUNTER 2024-01-14 09:15 | Outpatient (REF) | payer BC, SELFPAY ==
--- OUTSIDE RECORDS SUMMARY | 2024-01-17 08:23 | XMS_ITS | CCD ---
Author Organization [facility] CliniSyma Care Team Providers Care Trumpet Player Name Role Phone SERENA, DR CHITRA Aparicio [...] Unavailable LYONS, DR CHITRA Aparicio Consulting Unavailable SERENA, DR CHITRA Aparicio Primary Care Unavailable SERENA, DR CHITRA Aparicio Admitting Unavailable Chitra Lyons MD Primary Care Provider Serena LOPEZ, Chitra Rea Primary Care Unava glendy DALAL, Alice Hunter Attending Unavailable Diane DALAL, Christina Williamson Attending Unavailable Diane DALAL, Christina Williamson Attending Unavailable Serena LOPEZ, Chitra Rea Primary Care Unapearl Arnold MD, Tyler Souza Attending Unav Chitra Heath Unavailable CHITRA LYONS Primary Care Unavailable SERJIO KIRK Attending Unavailable SERJIO KIRK Attending Unavailable SERJIO KIRK Attending Unavailable Serjio Kirk Attending Provider [phone] Serjio Kirk Attending Unavailable Serjio Kirk Admitting Unavailable Allergies Allergy Classification Reported Allergen(s) Allergy Type Date of Onset Reaction(s) Facility (1 source) No Known Medication Allergies; Translations: [No Known Medication Allergies] Propensity to adverse reactions to drug (disorder) [facility] Repository (3 sources) patient allergy list reviewed by nurse or physicia Propensity to adverse reactions 8 Comment:Done [facility] Other (3 sources) Allergies Reconciled Propensity to adverse reactions Unknown [facility] Other Medications Current Medications Medication Drug Class(es) Dates Sig (Normalized) Sig (Original) [id number] 200 actuat albuterol 0.09 mg/actuat metered dose [...] Test Name Value Interpretation Reference Range Facility [facility] 01-14-2024 L Specimen: [id number] Received: 01/15/24 Status: SUDARSHAN [place] Num: [id number] Spec Type: Surgical Subm Dr: Serjio Kirk Tissues: A Endocervix - Curettings (ECC) Procedures: HE/2, Gross/Micro L4 Age/ Patient Sex Location Account Attending Physician Dinora Ann 23/F [facility] [id number] Serjio Kirk SPEC NUM: [id number] RECD: 01/15/24 STATUS: SUDARSHAN [place] NUM: [id number] XU: 01/14/[address]: Serjio Kirk ENTERED: 01/15/[address]: Davion,Lab SPEC TYPE: Surgical DEPT: KANU ALANIS ORDERED: HE/2, Gross/Micro L4 ORDERED: HE/2, Gross/Micro L4 Pathological Diagnosis Endocervix, curettage: Koilocytic atypia consistent with HPV infection. Clinical Information LGSIL Gross Description Received in formalin labeled with the patient's name, date of and endocervical curettings are multiple minute epps tissue fragments admixed with mucus measuring 1.1 x 0.4 x 0.1 cm in aggregate, entirely submitted in A1. CPT Codes 14631 -------- -------- Specimen: [id number] Received: 01/15/24 Status: SUDARSHAN [place] Num: [id number] Spec Type: Surgical Subm Dr: Srejio Kirk Tissues: A Endocervix - Curettings (ECC) Procedures: CHUN/Vishnu Conde/Xochitl L4 -------- Patient: Dinora Ann [id number] (Continued) -------- Signed (signature on file) January Morfin MD 01/16/24 1732 Normal [facility] Human papilloma virus 16+18+ 31+33+35+39+45+51+52+56+58+59+66+68 DNA [Presence] in [place] 12-24-2023 HPV 16+18+31+33+35+39+45 +51+52+56+58+59+66+6 8 DNA Probe+sig amp Ql (Cvx) Note Abnormal . [facility] Comment on above: TESTS RESULT FLAG UN ITS REF RANGE LAB DI AGNOSIS: [A] 02 EPITHELIAL CELL ABNORMALITY. LOW GRADE SQUAMOUS INTRAEPITHELIAL LESION (LSIL).Recommendation: [A] 02 Suggest follow up as clinically appropriate.Specimen adequacy: 02 Satisfactory for evaluation. Endocervical and/or squamous metaplastic cells (endocervical component) are present.Performed by: 02 Lali Foreman, Center Manager (ASCP)Electronically si... 02 Jacqueline Garner MD, Pathologist. 02Pathologist ICD10: 02 R87.612Note: Note 02 The Pap smear is a screening test designed to aid in the detection of premalignant and malignant conditions of the uterine cervix. It is not a diagnostic procedure and should not be used as the sole means of detecting cervical cancer. Both false-positive and false-negative reports do occur.Test Methodology: Note 02 This liquid based ThinPrep(R) pap test was screened with the use of an image guided system.. 02 The HPV DNA reflex criteria were not met with this specimen result therefore, no HPV testing was performed. ----- FLAG LEGEND: L-Low Normal,H-High Normal,LL-Alert Low,HH-Alert High <-Panic Low,>-Panic High,A-Abnormal,AA-Critical Abnormal ---Performed at:02 [address] [facility] [address] [address] Anabela Buckner MD, Izqlrvqvi at: =G - [facility] [address] [place], [place] [id number] Director: Anabela Buckner MD, Phone: [phone] at: - [facility] [address] [id number] Director: Anabela Buckner MD, Phone: [phone] No Panel Informationon 12-23 Reference Lab Test Patient Age Note . [facility] Comment on above: TESTS RESULT FLAG UN ITS REF RANGE LAB Clinician Provided Cytology Information Source.............Cervix;Endocervix No. of containers..01 ThinPrep VialAge Hollando RICHA Wendy... FLAG LEGEND: L-Low Normal,H-High Normal,LL-Alert Low,HH-Alert High <-Panic Low,>-Panic High,A-Abnormal,AA-Critical Abnormal ---Performed at:01 =G [facility] [address] [facility], [place] [address] Anabela Buckner MD, Hep Bs Abon 10-02-2022 Hep B Surface Antibody Interp Positive Normal [facility] Comment on above: Result Comment: Shani ent is considered to be immune to infection with HBV. Performed By: #### H BSAB #### [facility] [address] [place] [address] Hep Bs Ab >500.0 Normal [facility] Comment on above: Performed By: #### H BSAB #### [facility] [address] [place] [address] Urgent Care Office/Clinic No ashok 10-01-2022 Urgent Care Office/Clinic Note Chief Complaint pt states since last saturday has been having body aches, cough, congestion. Was seen 09/25 @ [facility] and given inhaler, mucinex. has been using for a week with no relief. History of Present Illness 22-year-old female presents today due to an illness that started 6 days ago. She was seen at [facility] and diagnosed with an upper respiratory infection. She was given albuterol, Mucinex, and an oral steroid. 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 She tells commercial real estate underwriter she is fatigued as she is not [...] caps, 0 Refill(s), 10/08/22 11:08:00 EDT, Pharmacy: [facility]/pharmacy #[id number] predniSONE, 2 tabs, Oral, Daily, X 7 days, # 14 tabs, 0 Refill(s), 10/08/22 11:08:00 EDT, Pharmacy: [facility]/pharmacy #[id number] [address] AMB Influenza POC POC SARS Antigen Card [...] reviewed the patient?s medication list for medication interactions/contrain dications and/or for upcoming procedures: yes Time Spent [...] by Alice Garcia 10/01/22 11:11 EDT Normal [facility] EKG 12-LEADon 09-25-2022 EKG 12-LEAD 69 69 136 94 398 426 58 65 26 Normal sinus rhythm Normal ECG No previous ECGs available Confirmed by RODRIGUEZ RIBEIRO ([id number]) on 09/25/2022 8:25:29 PM [email or web address] 30&Date=01-21-2023&Ti me=[id number]& TestType=ECG&Site=3&O utputType=PDF&Ext=PDF Normal [facility] Influenza virus A and B RNA and SARS-CoV-2 (COVID-19) N gene panel BRANDON+probe (Resp)on 09-25-2022 FLUAV RNA BRANDON+probe Ql (Resp) Not detected NOT DETECTED [facility] FLUBV RNA BRANDON+probe Ql (Resp) Not detected NOT DETECTED [facility] [employer] Comment on above: Performed at [facility] [address] [place] [address] SARS-CoV-2 (COVID-19) RNA BRANDON+probe Ql (Resp) Not detected NOT DETECTED [facility] [employer] Comment on above: Not Detected results do [...] (EUA) only. Fact sheet for Healthcare Providers: https://www.fda.gov/media/842431/download Fact sheet for Patients: https://www.fda.gov/media/040750/download [employer] [facility] S. pyogenes Ag EIA Ql (Throa t)on 09-25-2022 S. pyogenes Ag Ql (Throat) Negative NEGATIVE [facility] S. pyogenes Org specific cx Ql (Throat) INDICATED [facility] [employer] Comment on above: Performed at [facility] [address] [place], [place] [address] [facility] XR CHEST (2 VW)on 09-25-2022 1. No acute cardiopulmonary finding. This report has been created using voice recognition software. It may contain minor errors which are inherent in voice recognition technology. Final report electronically signed by Dr Beverley Dickerson on 09/25/2022 11:59 AM [facility] Beverley Woodard MD - 09/25/2022 PROCEDURE: XR CHEST (2 [...] Dr Beverley Dickerson on 09/25/2022 11:59 AM [employer] Phone: Radiology Study observation (narrative) [employer] Phone: XR CHEST (2 VW)Ordered By: Loree Dickerson on 09-25-2022 [employer] Phone: HEPATITIS B SURFACE ANTIBODY , QUANTon 07-06-2022 Hepatitis B Surf AB Quant >1000.0 Normal Immunity>9.9 [facility] Comment on above: Result Comment: Stat us of Immunity Anti-HBs Level Inconsistent with Immunity 0.0 - 9.9 Consistent with Immunity >9.9 Performed By: #### H EPBSRF #### [facility] [address] [place] [address] Dr. Jesus Mei DRUG SCREEN RAPID (URINE)on 07-05-2022 AMP Negative Normal NEGATIVE [facility] Comment on above: Performed By: #### D RUGRPD #### [facility] [address] [place] [address] Dr. Jesus Mei BAR Negative Normal NEGATIVE [facility] Comment on above: Performed By: #### D RUGRPD #### [facility] [address] [address] [address] Jesus Mei BUP Negative Normal NEGATIVE [facility] Comment on above: Performed By: #### D RUGRPD #### [facility] [address] [address] [address] Jesus Mei BZO Negative Normal NEGATIVE [facility] Comment on above: Performed By: #### D RUGRPD #### [facility] [address] [place] [address] Dr. Jesus Mei CHRISTINA Negative Normal NEGATIVE [facility] Comment on above: Performed By: #### D RUGRPD #### [facility] [address] [place] [address] Dr. Jesus Mei CUT-OFFS SEE BELOW Normal [facility] Comment on above: Result Comment: AMP (Amphetamine): 500ng/mL, BAR (Barbituates): 200 ng/mL, BZO (Benzodiazepines): 150 ng/mL, BUP (Buprenorphine): 10 ng/mL, CHRISTINA (Cocaine): 150 ng/mL, mAMP (Methamphetamine): 500 ng/mL, MTD (Methadone): 200 ng/mL, OPI (Opiates): 100 ng/mL, OXY (Oxycodone): 100 ng/mL, PCP (Phencyclidine): 25 ng/mL, PPX (Propoxyphene): 300 ng/mL, THC (Cannabinoids): 50 ng/mL, TCA (Trycyclic Antidepressants): 300 ng/mL Performed By: #### D RUGRPD #### [facility] [address] [place] [address] Dr. Jesus Mei DRUG CUT HEADER DRUG CLASS TEST SYSTEM CUT-OFF CONCENTRATIONS ARE FOLLOWS: Normal [facility] Comment on above: Performed By: #### D RUGRPD #### [facility] [address] [place] [address] Dr. Jesus Mei mAMP Negative Normal NEGATIVE [facility] Comment on above: Performed By: #### D RUGRPD #### [facility] [address] [place] [address] Dr. Jesus Mei MTD Negative Normal NEGATIVE [facility] Comment on above: Performed By: #### D RUGRPD #### [facility] [address] [place] [address] Dr. Jesus Mei OPI Negative Normal NEGATIVE [facility] Comment on above: Performed By: #### D RUGRPD #### [facility] [address] [place] [address] Dr. Jesus eMi OXY Negative Normal NEGATIVE [facility] Comment on above: Performed By: #### D RUGRPD #### [facility] [address] [place] [address] Dr. Jesus Mei PCP Negative Normal NEGATIVE [facility] Comment on above: Performed By: #### D RUGRPD #### [facility] [address] [place] [address] Dr. Jesus Mei PPX Negative Normal NEGATIVE [facility] Comment on above: Performed By: #### D RUGRPD #### [facility] [address] [place] [address] Dr. Jesus Mei TCA Negative Normal NEGATIVE [facility] Comment on above: Performed By: #### D RUGRPD #### [facility] [address] [place] [address] Dr. Jesus Mei THC Negative Normal NEGATIVE [facility] Comment on above: Performed By: #### D RUGRPD #### [facility] [address] [place] [address] Dr. Jesus Mei DRUG SCREEN RAPID (URINE)on 02-09-2022 AMP Negative Normal NEGATIVE [facility] Comment on above: Performed By: #### D RUGRPD #### [facility] [address] [place] [address] Dr. Jesus Mei BAR Negative Normal NEGATIVE [facility] Comment on above: Performed By: #### D RUGRPD #### [facility] [address] [place] [address] Dr. Jesus Mei BUP Negative Normal NEGATIVE [facility] Comment on above: Performed By: #### D RUGRPD #### [facility] [address] [place] [address] Dr. Jesus Mei BZO Negative Normal NEGATIVE [facility] Comment on above: Performed By: #### D RUGRPD #### [facility] [address] [place] [address] Dr. Jesus Mei CHRISTINA Negative Normal NEGATIVE [facility] Comment on above: Performed By: #### D RUGRPD #### [facility] [address] [place] [address] Dr. Jesus Mei CUT-OFFS SEE BELOW Normal [facility] Comment on above: Result Comment: AMP (Amphetamine): 500ng/mL, BAR (Barbituates): 200 ng/mL, BZO (Benzodiazepines): 150 ng/mL, BUP (Buprenorphine): 10 ng/mL, CHRISTINA (Cocaine): 150 ng/mL, mAMP (Methamphetamine): 500 ng/mL, MTD (Methadone): 200 ng/mL, OPI (Opiates): 100 ng/mL, OXY (Oxycodone): 100 ng/mL, PCP (Phencyclidine): 25 ng/mL, PPX (Propoxyphene): 300 ng/mL, THC (Cannabinoids): 50 ng/mL, TCA (Trycyclic Antidepressants): 300 ng/mL Performed By: #### D RUGRPD #### [facility] [address] [place] [address] Dr. Jesus Mei DRUG CUT HEADER DRUG CLASS TEST SYSTEM CUT-OFF CONCENTRATIONS ARE FOLLOWS: Normal [facility] Comment on above: Performed By: #### D RUGRPD #### [facility] [address] [place] [address] Dr. Jesus Mei mAMP Negative Normal NEGATIVE [facility] Comment on above: Performed By: #### D RUGRPD #### [facility] [address] [place] [address] Dr. Jesus Mei MTD Negative Normal NEGATIVE [facility] Comment on above: Performed By: #### D RUGRPD #### [facility] [address] [place] [address] Dr. Jesus Mei OPI Negative Normal NEGATIVE [facility] Comment on above: Performed By: #### D RUGRPD #### [facility] [address] [place] [address] Dr. Jesus Mei OXY Negative Normal NEGATIVE [facility] Comment on above: Performed By: #### D RUGRPD #### [facility] [address] [place] [address] Dr. Jesus Mei PCP Negative Normal NEGATIVE [facility] Comment on above: Performed By: #### D RUGRPD #### [facility] [address] [place] [address] Dr. Jesus Mei PPX Negative Normal NEGATIVE [facility] Comment on above: Performed By: #### D RUGRPD #### [facility] [address] [place] [address] Dr. Jesus Mei TCA Negative Normal NEGATIVE [facility] Comment on above: Performed By: #### D RUGRPD #### [facility] [address] [place], [place] [address] Dr. Jesus Mei THC Negative Normal NEGATIVE [facility] Comment on above: Performed By: #### D RUGRPD #### [facility] [address] [place], [place] [address] Dr. Jesus Mei C BP Strepon 10-19-2021 S. pyogenes Ag IA Ql (Unsp spec) Automatically ordered based on Negative Rapid Strep POC Test This is strictly a screening test for Strep Group A( Streptococcus pyogenes). No other pathogens will be noted. ---- Final Backup plate negative for Group A Streptococus Resulted at [facility] Normal [facility] Comment on above: Performed By: #### B P #### [facility] (DEFAULT) [address] [place] [address] [facility] [address] [place] [address] Urgent Care Office/Clinic No ashok 10-17-2021 Urgent [...] is negative. Will send for culture to [facility] and notify if it returns positive. Rest [...] for any new or worsening symptoms. Orders: [id number] AMB Rapid Strep POC Medical Decision Making [...] reviewed the patient?s medication list for medication interactions/contrain dications and/or for upcoming procedures: [yes] Time Spent [...] by Christina Martínez 10/17/21 15:20 EDT Normal [facility] DRUGS OF ABUSE 10 PANEL w/CO [facility] 07-19-2021 Amphetamines Screen, Urine Negative Normal Eqyeer=4853 [facility] Comment on above: Performed By: #### 1 0PDRUG #### [facility] [address] [place] [address] Dr. Jesus Mei Barbiturates Screen, Urine Negative Normal Fhjoub=515 [facility] Comment on above: Performed By: #### 1 0PDRUG #### [facility] [address] [place] [address] Dr. Jesus Mei Benzodiazepines Screen, Urine Negative Normal Aeuwfe=179 [facility] Comment on above: Performed By: #### 1 0PDRUG #### [facility] [address] [place] [address] Dr. Jesus Mei Cannabinoid Screen, Urine Negative Normal Cutoff=20 [facility] Comment on above: Performed By: #### 1 0PDRUG #### [facility] [address] [address] [address] Jesus Mei Cocaine (Metab.) Screen, Urine Negative Normal Myhqjv=861 [facility] Comment on above: Performed By: #### 1 0PDRUG #### [facility] [address] [address] [address] Jesus Mei Creatinine, Urine 45.9 mg/dL Normal 20.0-300.0 [facility] Comment on above: Performed By: #### 1 0PDRUG #### [facility] [address] [address] [address] Jesus Mei Methadone Screen, Urine Negative Normal Ejbwub=718 [facility] Comment on above: Performed By: #### 1 0PDRUG #### [facility] [address] [place] [address] Dr. Jesus Mei Opiate Screen, Urine Negative Normal Nhvyqg=989 [facility] Comment on above: Result Comment: Opia te test includes Codeine, Morphine, Hydromorphone, Hydrocodone. Performed By: #### 1 0PDRUG #### [facility] [address] [address] [address] Jesus Mei Oxycodone/Oxymorphon e, Urine Negative Normal Kzypvw=041 [facility] Comment on above: Result Comment: Test includes Oxycodone and Oxymorphone Performed By: #### 1 0PDRUG #### [facility] [address] [address] [address] Jesus Mei pH (U) 6.6 [pH] Normal 4.5-8.9 [facility] Comment on above: Performed By: #### 1 0PDRUG #### [facility] [address] [place] [address] Dr. Jesus Mei Phencyclidine Screen, Urine Negative Normal Cutoff=25 [facility] Comment on above: Performed By: #### 1 0PDRUG #### [facility] [address] [place] [address] Dr. Jesus Mei Please Note: Comment Normal [facility] Comment on above: Result Comment: Drug -test results should be interpreted in the context of clinical information. Patient metabolic variables, specific drug chemistry, and specimen characteristics can affect test outcome. Technical consultation is available if a test result is inconsistent with an expected outcome. ([email or web address] or call toll-free [phone]) . Drug brands, if listed herein, are trademarks of their respective owners. Performed By: #### 1 0PDRUG #### [facility] [address] [address] [address] Jesus Mie Propoxyphene Screen, Urine Negative Normal Bzgobk=707 [facility] Comment on above: Performed By: #### 1 0PDRUG #### [facility] [address] [address] [address] Jesus Mei Vital Signs Date Time Vital Sign Value Performing Clinician Facility 10-12-2022 12:00-0400 Body height 167.64 cm Chitra Lyons Other [facility] Other 10-12-2022 12:00-0400 Body mass index (BMI) [Ratio] 26.31 kg/m2 Chitra Lyons Other [facility] Other 10-12-2022 12:00-0400 Body temperature 98.7 [degF] Chitra Lyons Other [facility] Other 10-12-2022 12:00-0400 Body weight 73.94 kg Chitra Lyons Other [facility] Other 10-12-2022 12:00-0400 Diastolic blood pressure 64 mm[Hg] Chitra Lyons Other [facility] Other 10-12-2022 12:00-0400 SaO2% (BldA) [Mass fraction] 98 % Chitra Lyons Other [facility] Other 10-12-2022 12:00-0400 Systolic blood pressure 110 mm[Hg] Chitra Lyons Other [facility] Other 09-25-2022 09:47-0500 Body temperature 97.5 [degF] Chitra Lyons MD Work Phone: [facility] 09-25-2022 09:43-0500 Body height 167.6 cm Chitra Lyons MD Work Phone: [facility] 09-25-2022 09:43-0500 Body mass index (BMI) [Ratio] 25.82 kg/m2 Chitra Lyons MD Work Phone: [facility] 09-25-2022 09:43-0500 Body weight 72.58 kg Chitra Lyons MD Work Phone: [facility] 09-25-2022 09:43-0500 Diastolic blood pressure 76 mm[Hg] Chitra Lyons MD Work Phone: [facility] 09-25-2022 09:43-0500 Heart rate 66 /min Chitra Lyons MD Work Phone: [facility] 09-25-2022 09:43-0500 Respiratory rate 16 /min Chitra Lyons MD Work Phone: [facility] 09-25-2022 09:43-0500 SaO2% (BldA) [Mass fraction] 100 % Chitra Lyons MD Work Phone: [facility] 09-25-2022 09:43-0500 Systolic blood pressure 124 mm[Hg] Chitra Lyons MD Work Phone: [facility] Encounters Encounter Date Encounter Type Care Provider Facility Start: 01-14-2024 End: 01-14-2024 ambulatory Serjio Kirk [facility] Work Phone: Start: 01-14-2024 End: 01-14-2024 Departed Referred Serjio Kirk Work Phone: [facility] [place] [facility] Start: 01-14-2024 End: 01-14-2024 ambulatory SERJIO YELENA Not Available Start: 12-24-2023 Non-patient / Non-visit Serjio Yelena Work Phone: [facility] Work Phone: Start: 12-24-2023 End: 12-24-2023 ambulatory SERJIO YELENA Not Available Start: 11-07-2023 End: 11-07-2023 ambulatory SERJIO YELENA Not Available Start: 07-05-2023 End: 07-05-2023 ambulatory Chitra Lyons Other [facility] Other Start: 07-05-2023 Physical examination Chitra Lyons [facility] Start: 07-05-2023 Telephone encounter Chitra Lyons [facility] Start: 06-11-2023 End: 06-11-2023 ambulatory Chitra Lyons Other [facility] Other Start: 06-11-2023 Telephone encounter [facility] [facility] Start: 06-05-2023 End: 06-05-2023 ambulatory Chitra Lyons Other [facility] Other Start: 06-05-2023 Physical examination Chitra Lyons [facility] Start: 06-05-2023 Telephone encounter Chitra Lyons [facility] Start: 02-07-2023 End: 02-07-2023 ambulatory Chitra Lyons Other [facility] Other Start: 02-07-2023 Telephone encounter Chitra [facility] Start: 01-31-2023 End: 01-31-2023 ambulatory Chitra Lyons Other [facility] Other Start: 01-31-2023 Telephone encounter Chitra Lyons [facility] Start: 10-12-2022 End: 10-12-2022 ambulatory Chitra Lyons Other [facility] Other Start: 10-12-2022 Office outpatient vi sit 15 minutes Chitra Lyons [facility] Start: 10-02-2022 End: 10-03-2022 ambulatory Chitra Lyons MD Facility:[facility] Start: 10-01-2022 End: 10-01-2022 ambulatory Chitra Lyons MD Facility:[facility] Start: 09-25-2022 End: 09-25-2022 Emergency department patient visit CHITRA LYONS [facility] Start: 09-25-2022 End: 09-25-2022 Emergency department patient visit Chitra Lyons MD Work Phone: [facility] Comment on above: Acute upper respirat ory infection (Primary Dx) Start: 07-05-2022 End: 07-06-[address] CHITRA LYONS Facility:[facility] Start: 02-09-2022 End: 02-10-[address] CHITRA LYONS Facility:[facility] Start: 10-17-2021 End: 10-18-2021 ambulatory Christina Contreras OUT OF TOWN COLLECTION CLERK-APPEALS EXAMINER Facility:[facility] Start: 07-17-2021 End: 07-18-[address] CHITRA LYONS Facility:[facility] Start: 07-29-2020 End: 07-29-2020 Gynecological examination normal Chitra Lyons Other [facility] Other Start: 08-03-2019 End: 08-03-2019 Well child visit Chitra Lyons Other [facility] Other Procedures Date Procedure Procedure Detail Performing Clinician Start: 09-25-2022 Radiologic exam ches t 2 views Shameka Merino OUT OF TOWN COLLECTION CLERK - APPEALS EXAMINER Work Phone: Start: 09-25-2022 Streptococcus pyogen es Ag [Presence] in Throat by Immunoassay Shameka Merino OUT OF TOWN COLLECTION CLERK - APPEALS EXAMINER Work Phone: Start: 09-25-2022 Influenza virus A an d B RNA and SARS-CoV-2 (COVID-19) N gene panel - Respiratory specimen by BRANDON with probe detection Shameka Merino OUT OF TOWN COLLECTION CLERK [employer] Work Phone: Start: 09-25-2022 Ecg routine ecg w/le ast 12 lds w/i&r Shameka Merino OUT OF TOWN COLLECTION CLERK [employer] APPEALS EXAMINER Work Phone: Start: 11-29-2021 End: 12-27-2021 Insertion of intrauterine contraceptive device Chitra Lyons Other Depression screening Chitra Lyons Other School admission med ical examination Chitra Lyons Other Plan of Treatment Date Care Activity Detail Author Start: 02-03-2024 DTaP/Tdap/Td vaccine (7 - Td or Tdap) DTaP/Tdap/Td vaccine (7 - Td or Tdap) [facility] Start: 2022 Screening for malign ant neoplasm of cervix Pap smear [facility] Start: 02-22-2022 COVID-19 Vaccine (2 - Pfizer series) COVID-19 Vaccine (2 - Pfizer series) [facility] Start: 2019 Hepatitis C screening Hepatitis C sc reen [facility] Start: 2017 Screening for Chlamy david trachomatis Chlamydia/GC screen [facility] Start: 2016 HIV screening HIV screen [facility] [employer] Start: 2013 Depression Screen Depression Screen [facility] Start: 2012 HPV vaccine (1 - 2-d ose series) HPV vaccine (1 - 2-dose series) [facility] Bacteria identified in Throat by Aerobe culture Culture, Throat Microbiology Routine 09/25/2022 10:20 AM EST [facility] [facility] Work Phone: End: 09-25-2022 Culture, Throat Culture, Throat Microbiology Routine Once for 1 Occurrences starting 09/25/2022 until 09/25/2022 [facility] Comment on above: Once for 1 Occurrenc es starting 09/25/2022 until 09/25/2022 EKG 12 Lead EKG 12 Lead ECG STAT 09/25/2022 9:39 AM EST [employer] [facility] Phone: Immunizations Immunization Date Immunization Notes Care Provider Fa cilisophy 02-11-2019 meningococcal B, unspecified formulation Chitra Lyons Other [facility] Payers Date Payer Category Payer Self-pay 2022 Unknown [id number] 2021 Unknown 2019 Unknown [id number] 2001 Unknown [id number] 2.16.84 [id number] 2001 Unknown [id number] 2.16.84 [id number] 2001 Unknown [id number] 2.16.84 [id number] 2001 Unknown [id number] 2.16. [id number] 2001 Unknown [id number] 2.16. [id number] 2001 Unknown [id number] 2.16. [id number] 2001 Unknown [id number] 2.16. [id number] 2001 Unknown [id number] 2.16.84 [id number] 2001 Unknown [id number] 2.16.84 [id number] 2001 Unknown [id number] 2.16.84 [id number] Social History Date Type Detail Facility Tobacco smoking status TNIS Tobacco smoking consumption unknown [employer] Phone: Start: 2000 Sex Assigned At Not on file [facility] [employer] Phone: Start: 09-15-2022 End: 09-25-2022 Exposure to SARS-CoV-2 (event) Not sure [facility] [employer] Work Phone: Sex Assigned At Sex Assigned At Bir th [facility] Other Start: 2000 Sex Assigned At Female F [facility] Clinical Notes 10-17-2021 to 07-05-2023 Note Date & Type Note Facility 07-05-2023 Evaluation note Encounter Date Diagnosis Assessment Notes Jun, Encounter for physical examination of student (ICD-10 - Z00.8) [facility] Other 11-15-2023 Evaluation note* Encounter Date Diagnosis Assessment Notes Treatment Notes Treatment Clinical Notes May, Encounter for physical examination of student (ICD-10 - Z00.8) [facility] Other 03-24-2023 Evaluation note* Encounter Date Diagnosis Assessment Notes Treatment Notes Treatment Clinical Notes Sep, Bronchitis (ICD-10 - J40) Finish antibiotic. Still has inhaler from other facility if needed. [facility] Other 03-13-2023 NotePatient Education Materials Name: Dinora Ann Current Date: 10/01/2022 11:20:26 [place] : 2000 The following sheet(s) are [...] to secondhand smoke. ? You may use kosa-hac-dwlrehs medicine to control fever or pain, unless [...] secretions in the nose and lungs. ? Ehbn-odc-uzziefh cough, cold, and sore-throat medicines will not [...] breathing, wheezing, or pain with breathing ? [id number] [employer] [place] [id number]. All rights reserved. This information is not [...] emergency department for new or worsening of symptoms.[facility]03-07-2023 NotePROCEDURE: XR CHEST (2 VW) CLINICAL INFORMATION: [...] Signed by: Beverley Dickerson MD 09/25/22 [facility] Discharge instructions* Discharge Instructions* Shameka Merino APRN - APPEALS EXAMINER - 09/25/2022 12:06 PM EST Rest, Stay well-hydrated. Frux-gdq-wqgazzo Tylenol and/or Motrin as needed for fever, [...] Care Everywhere. * URI (Upper Respiratory Infection) ([place]) * URI (Upper Respiratory Infection): Viral ([place]) documented in this encounterBON [employer] Work Phone: 1(260) 815-508703-07-2023 NotePROCEDURE: XR CHEST (2 VW) CLINICAL INFORMATION: cough, chest congestion COMPARISON: None TECHNIQUE: PA and lateral views of the chest performed. FINDINGS: No focal pulmonary consolidation. Cardiac silhouette is not enlarged. No pleural effusion. No pneumothorax. No acute bony abnormality. [facility] [id number] NotePatient Education Materials Name: Dinora Ann Dileep Current Date: 10/17/2021 15:21:23 Vivian/[facility] : 2000 The following sheet(s) are the [...] weeks, you may need to see an material handler. This is a doctor who treats diseases [...] talk ? Feeling dizzy or lightheaded ? [id number] [employer]. [address] [place] [address]. All rights reserved. This information is not intended as a substitute for professional medical care. Always follow your healthcare professional's instructions. Strep today is negative. Will send for culture to [facility] and notify if it returns positive. Rest [...] emergency department for any new or worsening symptoms.[facility]* Diagnosis Acute upper respiratory infection- Primary Acute upper respiratory infections of unspecified site documented in this encounter [facility] [employer] Work Phone: evaluation noteNo InformationNort BATS Other Evaluation noteNo assessment information available [facility] Work Phone: History general Narrative - Reported* Type Description Date Medical History History of blood transfusion Medical History Adult acne Surgical History MYORINGOTOMY WITH TUBE PLACEMEN T - BILATERAL Surgical History PE TUBES Hospitalization History SEE SURGICAL HX [place] [facility] Other Summary Purpose Family History No Family History Records Found Relationship Condition Age at Onset Recorded Date/T mike family member History of migraine Unknown grandparent Malignant neoplasm of breast Unknown Malignant neoplasm Unknown grandparent Family history of lung cancer Unknown mother Hypothyroidism Unknown Advance Directives No Advanced Directives Records FoundNo Advanced Directives Records FoundNo Advanced Directives Records FoundNo Advanced Directives Records FoundNo Advanced Directives Records Found Additional Source Comments INFORMATION SOURCE (unrecogn ized section and content) DATE CREATED AUTHOR 07/12/2022 [facility] DATE CREATED AUTHOR AUTHOR'S ORGANIZ ATION 10/03/2022 [facility] DATE CREATED AUTHOR AUTHOR'S ORGANIZ ATION 10/24/2022 [facility] DATE CREATED AUTHOR AUTHOR'S ORGANIZ ATION 01/15/2024 [facility] EPIC DATE CREATED AUTHOR AUTHOR'S ORGANIZ ATION 01/16/2024 [facility] Reason for Visit (unrecogniz ed section and [...] Care Teams (unrecognized sec tion and content) Trumpet Player Relationship Specialty Start Date End Date Chitra Lyons MD [address] [place] [phone] PCP - General Family Medicine 09/25/22 Team Status: Active Member Role Status Dates Chitra Lyons MD Primary Care Provider Active Start: December 24, 2023 Serjio Kirk Attending Provider Active Start: Devorah aponte 2023 Team Status: Inactive Member Role Status Dates Serjio Kirk Attending Provider Active Start: Ju 2023 End: January 14, 2024 Goals (unrecognized section and content) Goals may be documented in a n alternate section FOR RECORDS PERTAINING TO PATIENTS WHO ARE [...] BE BASED ON THE PRIMARY CLINICAL RECORDS. [facility] [employer] [facility]. provides no warranty or guarantee of the accuracy or completeness of information in this document.
== END 2024-01-14 09:16 | disposition home or self-care (01) ==
LOC: LAB 09:15
PROVIDERS: PCP Family Medicine; Visit Provider Obstetrics & Gynecology
DX: R87.618 Other abnormal cytological findings on specimens from cervix uteri (principal)
CPT/HCPCS: 88305

== ENCOUNTER 2024-04-13 11:21 | Outpatient (OUT) | payer BC, SELFPAY ==
--- OUTSIDE RECORDS SUMMARY | 2024-04-13 11:43 | XMS_ITS | CCD ---
Author Organization [facility] CliniSyla Care Team Providers Care Is/It Project Manager Name Role Phone SERENA, DR CHITRA Aparicio [...] Unavailable Chitra Lyons MD Primary Care Provider [phone] Serena LOPEZ, Chitra Rea Primary Care Unava glendy DALAL, Alice Hunter Attending Unavailable Diane DALAL, Christina Williamson Attending Unavailable Diane DALAL, Christina Williamson Attending Unavailable Serena LOPEZ, Chitra Rea Primary Care Unapearl Arnold MD, Tyler Souza Attending Unav Chitra Heath Unavailable CHITRA LYONS Primary Care Unavailable SERJIO KIRK Attending Unavailable SERJIO KIRK Attending Unavailable SERJIO KIRK Attending Unavailable Serjio Kirk Attending Provider Serjio Kirk Attending Unavailable Serjio Kirk Admitting Unavailable Allergies Allergy Classification Reported Allergen(s) Allergy Type Date of Onset Reaction(s) Facility (1 source) No Known Medication Allergies; Translations: [No Known Medication Allergies] Propensity to adverse reactions to drug (disorder) [facility] Repository (3 sources) patient allergy list reviewed by nurse or physicia Propensity to adverse reactions 8 Comment:Done [facility] Other (3 sources) Allergies Reconciled Propensity to adverse reactions Unknown [facility] Other Medications Current Medications Medication Drug Class(es) Dates Sig (Normalized) Sig (Original) [id number] 200 actuat albuterol 0.09 mg/actuat metered dose [...] Test Name Value Interpretation Reference Range Facility [facility] 01-14-2024 L Specimen: [id number] Received: 01/15/24 Status: SUDARSHAN [place] Num: [id number] Spec Type: Surgical Subm Dr: Serjio Kirk Tissues: A Endocervix - Curettings (ECC) Procedures: HE/2, Gross/Micro L4 Age/ Patient Sex Location Account Attending Physician Dinora Ann 23/F [facility] [id number] Serjio Kirk SPEC NUM: [id number] RECD: 01/15/24 STATUS: SUDARSHAN [place] NUM: [id number] XU: 01/14/[address]: Serjio Kirk ENTERED: 01/15/[address]: Daivon,Lab SPEC TYPE: Surgical DEPT: KANU ALANIS ORDERED: [...] aggregate, entirely submitted in A1. CPT Codes 18859 -------- -------- Specimen: [id number] Received: 01/15/24 Status: SUDARSHAN [place] Num: [id number] Spec Type: Surgical Subm Dr: Serjio Kirk Tissues: A Endocervix - Curettings (ECC) Procedures: CHUN/Vishnu Conde/Xochitl L4 -------- Patient: Dinora Ann [id number] (Continued) -------- Signed (signature on file) January Morfin MD 01/16/24 1732 Normal The Count Includes [facility] Human papilloma virus 16+18+ 31+33+35+39+45+51+52+56+58+59+66+68 DNA [Presence] in [place] 12-24-2023 HPV 16+18+31+33+35+39+45 +51+52+56+58+59+66+6 8 DNA Probe+sig amp Ql (Cvx) Note Abnormal . [facility] Comment on above: TESTS RESULT FLAG UN ITS REF RANGE LAB DI AGNOSIS: [A] 02 EPITHELIAL CELL ABNORMALITY. LOW GRADE SQUAMOUS INTRAEPITHELIAL LESION (LSIL).Recommendation: [A] 02 Suggest follow up as clinically appropriate.Specimen adequacy: 02 Satisfactory for evaluation. Endocervical and/or squamous metaplastic cells (endocervical component) are present.Performed by: 02 Lali Foreman, Academic Affairs Dean (ASCP)Electronically si... 02 Jacqueline Garner MD, Pathologist. [...] Low,>-Panic High,A-Abnormal,AA-Critical Abnormal ---Performed at:[address] [facility] [address] [address] Anabela Buckner MD, Rfuqyqnuo at: =G - [facility] [address] [place], [place] [id number] Director: Anabela Buckner MD, Phone: [phone] at: - [facility] [id number] [id number] Director: Anabela Buckner MD, Phone: [phone] No Panel Informationon 12-23 Reference Lab Test Patient Age Note . [facility] Comment on above: TESTS RESULT FLAG UN ITS REF RANGE LAB Clinician Provided Cytology Information Source.............Cervix;Endocervix No. of containers..01 ThinPrep VialAge Hollando RICHA Wendy... FLAG LEGEND: L-Low Normal,H-High Normal,LL-Alert Low,HH-Alert High <-Panic Low,>-Panic High,A-Abnormal,AA-Critical Abnormal ---Performed at:01 =G [facility] [place] [address] [facility] [place], [place] [address] Anabela Buckner MD, Hep Bs Abon 10-02-2022 Hep B Surface Antibody Interp Positive Normal [facility] Comment on above: Result Comment: Shani ent is considered to be immune to infection with HBV. Performed By: #### H BSAB #### [facility] [address] [place] [address] Hep Bs Ab >500.0 Normal [facility] Comment on above: Performed By: #### H BSAB #### [facility] [address] [place] [address] Urgent Care Office/Clinic No ashok 10-01-2022 Urgent Care Office/Clinic Note Chief Complaint pt states since last saturday has been having body aches, cough, congestion. Was seen 09/25 @ [facility] and given inhaler, mucinex. has been using for a week with no relief. History of Present Illness 22-year-old female presents today due to an illness that started 6 days ago. She was seen at [facility] and diagnosed with an upper respiratory infection. She was given albuterol, Mucinex, and an oral steroid. 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 She tells senior technical writer she is fatigued as she is not [...] caps, 0 Refill(s), 10/08/22 11:08:00 EDT, Pharmacy: [facility]/pharmacy #[id number] predniSONE, 2 tabs, Oral, Daily, X 7 days, # 14 tabs, 0 Refill(s), 10/08/22 11:08:00 EDT, Pharmacy: [facility]/pharmacy #[id number] AMB Influenza POC POC SARS Antigen Card [...] by Alice Garcia 10/01/22 11:11 EDT Normal [facility] EKG 12-LEADon 09-25-2022 EKG 12-LEAD 69 69 136 94 398 426 58 65 26 Normal sinus rhythm Normal ECG No previous ECGs available Confirmed by RODRIGUEZ RIBEIRO ([id number]) on 09/25/2022 8:25:29 PM [email or web address] 30&Date=01-21-2023&Ti me=[id number]%[id number]& TestType=ECG&Site=3&O utputType=PDF&Ext=PDF Normal [facility] Influenza virus A and B RNA and SARS-CoV-2 (COVID-19) N gene panel BRANDON+probe (Resp)on 09-25-2022 FLUAV RNA BRANDON+probe Ql (Resp) Not detected NOT DETECTED [facility] FLUBV RNA BRANDON+probe Ql (Resp) Not detected NOT DETECTED [facility] [employer] Comment on above: Performed at [facility] [address] [place] [address] SARS-CoV-2 (COVID-19) RNA BRANDON+probe Ql (Resp) Not detected NOT DETECTED [facility] [employer] Comment on above: Not Detected results do [...] (EUA) only. Fact sheet for Healthcare Providers: https://www.fda.gov/media/579092/download Fact sheet for Patients: https://www.fda.gov/media/419012/download [employer] [facility] S. pyogenes Ag EIA Ql (Throa t)on 09-25-2022 S. pyogenes Ag Ql (Throat) Negative NEGATIVE [employer] S. pyogenes Org specific cx Ql (Throat) INDICATED [facility] [employer] Comment on above: Performed at [facility] [address] [place], [place] [address] [facility] XR CHEST (2 VW)on 09-25-2022 1. No acute cardiopulmonary finding. This report has been created using voice recognition software. It may contain minor errors which are inherent in voice recognition technology. Final report electronically signed by Dr Beverley Dickerson on 09/25/2022 11:59 AM [facility] Beverley Woodard MD - 09/25/2022 PROCEDURE: [...] Dr Beverley Dickerson on 09/25/2022 11:59 AM [employer] Phone: Radiology Study observation (narrative) [employer] Phone: XR CHEST (2 VW)Ordered By: Loree Dickerson on 09-25-2022 [employer] Phone: HEPATITIS B SURFACE ANTIBODY , QUANTon 07-06-2022 Hepatitis B Surf AB Quant >1000.0 Normal Immunity>9.9 [facility] Comment on above: Result Comment: Stat us of Immunity Anti-HBs Level Inconsistent with Immunity 0.0 - 9.9 Consistent with Immunity >9.9 Performed By: #### H EPBSRF #### [facility] Laboratory [address] [place] [address] Dr. Jesus Mei DRUG SCREEN RAPID (URINE)on 07-05-2022 AMP Negative Normal NEGATIVE [facility] Comment on above: Performed By: #### D RUGRPD #### [facility] Laboratory [address] [place] [address] Dr. Jesus Mei BAR Negative Normal NEGATIVE [facility] Comment on above: Performed By: #### D RUGRPD #### [facility] Laboratory [address] [address] [address] Jesus Mei BUP Negative Normal NEGATIVE [facility] Comment on above: Performed By: #### D RUGRPD #### [facility] Laboratory [address] [address] [address] Jesus Mei BZO Negative Normal NEGATIVE [facility] Comment on above: Performed By: #### D RUGRPD #### [facility] Laboratory [address] [place] [address] Dr. Jesus Mei CHRISTINA Negative Normal NEGATIVE [facility] Comment on above: Performed By: #### D RUGRPD #### [facility] Laboratory [address] [place] [address] Dr. Jesus Mei CUT-OFFS SEE BELOW Normal [facility] Comment on above: Result Comment: AMP [...] ng/mL Performed By: #### D RUGRPD #### [facility] Laboratory [address] [place] [address] Dr. Jesus Mei DRUG CUT HEADER DRUG CLASS TEST SYSTEM CUT-OFF CONCENTRATIONS ARE FOLLOWS: Normal [facility] Comment on above: Performed By: #### D RUGRPD #### [facility] Laboratory [address] [place] [address] Dr. Jesus Mei mAMP Negative Normal NEGATIVE [facility] Comment on above: Performed By: #### D RUGRPD #### [facility] Laboratory [address] [place] [address] Dr. Jesus Mei MTD Negative Normal NEGATIVE [facility] Comment on above: Performed By: #### D RUGRPD #### [facility] Laboratory [address] [place] [address] Dr. Jesus Mei OPI Negative Normal NEGATIVE [facility] Comment on above: Performed By: #### D RUGRPD #### [facility] Laboratory [address] [place] [address] Dr. Jesus Mei OXY Negative Normal NEGATIVE [facility] Comment on above: Performed By: #### D RUGRPD #### [facility] Laboratory [address] [place] [address] Dr. Jesus Mei PCP Negative Normal NEGATIVE [facility] Comment on above: Performed By: #### D RUGRPD #### [facility] Laboratory [address] [place] [address] Dr. Jesus Mei PPX Negative Normal NEGATIVE [facility] Comment on above: Performed By: #### D RUGRPD #### [facility] Laboratory [address] [place] [address] Dr. Jesus Mei TCA Negative Normal NEGATIVE [facility] Comment on above: Performed By: #### D RUGRPD #### [facility] Laboratory [address] [place] [address] Dr. Jesus Mei THC Negative Normal NEGATIVE [facility] Comment on above: Performed By: #### D RUGRPD #### [facility] [address] [place] [address] Dr. Jesus Mei DRUG SCREEN RAPID (URINE)on 02-09-2022 AMP Negative Normal NEGATIVE [facility] Comment on above: Performed By: #### D RUGRPD #### [facility] Laboratory [address] [place] [address] Dr. Jesus Mei BAR Negative Normal NEGATIVE [facility] Comment on above: Performed By: #### D RUGRPD #### [facility] Laboratory [address] [place] [address] Dr. Jesus Mei BUP Negative Normal NEGATIVE [facility] Comment on above: Performed By: #### D RUGRPD #### [facility] Laboratory [address] [place] [address] Dr. Jesus Mei BZO Negative Normal NEGATIVE [facility] Comment on above: Performed By: #### D RUGRPD #### [facility] Laboratory [address] [place] [address] Dr. Jesus Mei CHRISTINA Negative Normal NEGATIVE [facility] Comment on above: Performed By: #### D RUGRPD #### [facility] Laboratory [address] [place] [address] Dr. Jesus Mei CUT-OFFS SEE BELOW Normal [facility] Comment on above: Result Comment: AMP [...] ng/mL Performed By: #### D RUGRPD #### [facility] [address] [place] [address] Dr. Jesus Mei DRUG CUT HEADER DRUG CLASS TEST SYSTEM CUT-OFF CONCENTRATIONS ARE FOLLOWS: Normal [facility] Comment on above: Performed By: #### D RUGRPD #### [facility] Laboratory [address] [place] [address] Dr. Jesus Mei mAMP Negative Normal NEGATIVE [facility] Comment on above: Performed By: #### D RUGRPD #### [facility] [address] [place] [address] Dr. Jesus Mei MTD Negative Normal NEGATIVE [facility] Comment on above: Performed By: #### D RUGRPD #### [facility] [address] [place] [address] Dr. Jesus Mei OPI Negative Normal NEGATIVE [facility] Comment on above: Performed By: #### D RUGRPD #### [facility] [address] [place] [address] Dr. Jesus Mei OXY Negative Normal NEGATIVE [facility] Comment on above: Performed By: #### D RUGRPD #### [facility] Laboratory [address] [place] [address] Dr. Jesus Mei PCP Negative Normal NEGATIVE [facility] Comment on above: Performed By: #### D RUGRPD #### [facility] [address] [place] [address] Dr. Jesus Mei PPX Negative Normal NEGATIVE [facility] Comment on above: Performed By: #### D RUGRPD #### [facility] [address] [place] [address] Dr. Jesus Mei TCA Negative Normal NEGATIVE [facility] Comment on above: Performed By: #### D RUGRPD #### [facility] [address] [place], [place] [address] Dr. Jesus Mei THC Negative Normal NEGATIVE [facility] Comment on above: Performed By: #### D RUGRPD #### [facility] [address] [place], [place] [address] Dr. Jesus Mei C BP Strepon 10-19-2021 S. pyogenes Ag IA Ql (Unsp spec) Automatically ordered based on Negative Rapid Strep POC Test This is strictly a screening test for Strep Group A( Streptococcus pyogenes). No other pathogens will be noted. ---- Final Backup plate negative for Group A Streptococus Resulted at [facility] Normal [facility] Comment on above: Performed By: #### B P #### [facility] (DEFAULT) [address] [place] [address] [facility] [address] [place] [address] Urgent Care Office/Clinic No ashok 10-17-2021 Urgent [...] is negative. Will send for culture to [facility] and notify if it returns positive. Rest [...] for any new or worsening symptoms. Orders: [id number] AMB Rapid Strep POC Medical Decision Making [...] by Christina Martínez 10/17/21 15:20 EDT Normal [facility] DRUGS OF ABUSE 10 PANEL w/CO [facility] 07-19-2021 Amphetamines Screen, Urine Negative Normal Xjjpdy=1068 [facility] Comment on above: Performed By: #### 1 0PDRUG #### [facility] Laboratory [address] [place] [address] Dr. Jesus Mei Barbiturates Screen, Urine Negative Normal Dvgpfu=526 [facility] Comment on above: Performed By: #### 1 0PDRUG #### [facility] Laboratory [address] [place] [address] Dr. Jesus Mei Benzodiazepines Screen, Urine Negative Normal Opersb=864 [facility] Comment on above: Performed By: #### 1 0PDRUG #### [facility] [address] [place] [address] Dr. Jesus Mei Cannabinoid Screen, Urine Negative Normal Cutoff=20 [facility] Comment on above: Performed By: #### 1 0PDRUG #### [facility] Laboratory [address] [address] [address] Jesus Mei Cocaine (Metab.) Screen, Urine Negative Normal Oofbcd=251 [facility] Comment on above: Performed By: #### 1 0PDRUG #### [facility] Laboratory [address] [address] [address] Jesus Mei Creatinine, Urine 45.9 mg/dL Normal 20.0-300.0 [facility] Comment on above: Performed By: #### 1 0PDRUG #### [facility] Laboratory [address] [address] [address] Jesus Mei Methadone Screen, Urine Negative Normal Ewzmox=151 [facility] Comment on above: Performed By: #### 1 0PDRUG #### [facility] [address] [place] [address] Dr. Jesus Mei Opiate Screen, Urine Negative Normal Zqqmjq=287 [facility] Comment on above: Result Comment: Opia te test includes Codeine, Morphine, Hydromorphone, Hydrocodone. Performed By: #### 1 0PDRUG #### [facility] [address] [address] [address] Jesus Mei Oxycodone/Oxymorphon e, Urine Negative Normal Bgxzsz=850 [facility] Comment on above: Result Comment: Test includes Oxycodone and Oxymorphone Performed By: #### 1 0PDRUG #### [facility] Laboratory [address] [address] [address] Jesus Mei pH (U) 6.6 [pH] Normal 4.5-8.9 [facility] Comment on above: Performed By: #### 1 0PDRUG #### [facility] [address] [place] [address] Dr. Jesus Mei Phencyclidine Screen, Urine Negative Normal Cutoff=25 [facility] Comment on above: Performed By: #### 1 0PDRUG #### [facility] [address] [place] [address] Dr. Jesus Mei Please Note: Comment Normal [facility] Comment on above: Result Comment: Drug -test results should be interpreted in the context of clinical information. Patient metabolic variables, specific drug chemistry, and specimen characteristics can affect test outcome. Technical consultation is available if a test result is inconsistent with an expected outcome. ([email or web address] or call toll-free [phone]) . Drug brands, if listed herein, are trademarks of their respective owners. Performed By: #### 1 0PDRUG #### [facility] [address] [address] [address] Jesus Mei Propoxyphene Screen, Urine Negative Normal Bsibuz=928 [facility] Comment on above: Performed By: #### 1 0PDRUG #### [facility] [address] [address] [address] Jesus Mei Vital Signs Date Time Vital Sign Value Performing Clinician Facility 10-12-2022 12:00-0400 Body height 167.64 cm Chitra Lyons Other [employer] [facility] Other 10-12-2022 12:00-0400 Body mass index (BMI) [Ratio] 26.31 kg/m2 Chitra Lyons Other [facility] Other 10-12-2022 12:00-0400 Body temperature 98.7 [degF] Chitra Lyons Other [facility] Other 10-12-2022 12:00-0400 Body weight 73.94 kg Chitra Lyons Other [facility] Other 10-12-2022 12:00-0400 Diastolic blood pressure 64 mm[Hg] Chitra Lyons Other [facility] Other 10-12-2022 12:00-0400 SaO2% (BldA) [Mass fraction] 98 % Chitra Lyons Other [facility] Other 10-12-2022 12:00-0400 Systolic blood pressure 110 mm[Hg] Chitra Lyons Other [facility] Other 09-25-2022 09:47-0500 Body temperature 97.5 [degF] Chitra Lyons MD Work Phone: [email or web address] 09-25-2022 09:43-0500 Body height 167.6 cm Chitra Lyons MD Work Phone: [email or web address] 09-25-2022 09:43-0500 Body mass index (BMI) [Ratio] 25.82 kg/m2 Chitra Lyons MD Work Phone: [email or web address] 09-25-2022 09:43-0500 Body weight 72.58 kg Chitra Lyons MD Work Phone: [email or web address] 09-25-2022 09:43-0500 Diastolic blood pressure 76 mm[Hg] Chitra Lyons MD Work Phone: [email or web address] 09-25-2022 09:43-0500 Heart rate 66 /min Chitra Lyons MD Work Phone: [email or web address] 09-25-2022 09:43-0500 Respiratory rate 16 /min Chitra Lyons MD Work Phone: [email or web address] 09-25-2022 09:43-0500 SaO2% (BldA) [Mass fraction] 100 % Chitra Lyons MD Work Phone: [email or web address] 09-25-2022 09:43-0500 Systolic blood pressure 124 mm[Hg] Chitra Lyons MD Work Phone: [email or web address] Encounters Encounter Date Encounter Type Care Provider Facility Start: 01-14-2024 End: 01-14-2024 ambulatory Serjio Kirk [facility] Work Phone: Start: 01-14-2024 End: 01-14-2024 Departed Referred Serjio Kirk Work Phone: [facility] [place] [facility] Start: 01-14-2024 End: 01-14-2024 ambulatory SERJIO YELENA Not Available Start: 12-24-2023 Non-patient / Non-visit Serjio Yelena Work Phone: Count Includes [facility] Work Phone: Start: 12-24-2023 End: 12-24-2023 ambulatory SERJIO YELENA Not Available Start: 11-07-2023 End: 11-07-2023 ambulatory SERJIO YELENA Not Available Start: 07-05-2023 End: 07-05-2023 ambulatory Chitra Lyons Other [facility] Other Start: 07-05-2023 Physical examination Chitra Lyons [facility] Start: 07-05-2023 Telephone encounter Chitra Lyons [facility] Start: 06-11-2023 End: 06-11-2023 ambulatory Chitra Lyons Other [facility] Other Start: 06-11-2023 Telephone encounter Chitra Lyons [facility] Start: 06-05-2023 End: 06-05-2023 ambulatory Chitra Lyons Other [employer] Other Start: 06-05-2023 Physical examination Chitra Lyons [facility] Start: 06-05-2023 Telephone encounter Chitra Lyons [facility] Start: 02-07-2023 End: 02-07-2023 ambulatory Chitra Lyons Other [employer] Other Start: 02-07-2023 Telephone encounter Chitra Serena [facility] Start: 01-31-2023 End: 01-31-2023 ambulatory Chitra Lyons Other [employer] Other Start: 01-31-2023 Telephone encounter Chitra Lyons [facility] Start: 10-12-2022 End: 10-12-2022 ambulatory Chitra Lyons Other [employer] Other Start: 10-12-2022 Office outpatient vi sit 15 minutes Chitra Lyons [facility] Start: 10-02-2022 End: 10-03-2022 ambulatory Chitra Lyons MD Facility:[facility] Start: 10-01-2022 End: 10-01-2022 ambulatory hCitra Lyons MD Facility:[facility] Start: 09-25-2022 End: 09-25-2022 Emergency department patient visit CHITRA LYONS [facility] Start: 09-25-2022 End: 09-25-2022 Emergency department patient visit Chitra Lyons MD Work Phone: [facility] Comment on above: Acute upper respirat ory infection (Primary Dx) Start: 07-05-2022 End: 07-06-[address] CHITRA LYONS Facility:[facility] Start: 02-09-2022 End: 02-10-[address] CHITRA LYONS Facility:[facility] Start: 10-17-2021 End: 10-18-2021 ambulatory Christina Contreras DIRECTOR OF ENTERPRISE ARCHITECTURE-SPLICER OPERATOR Facility:[facility] Start: 07-17-2021 End: 07-18-[address] CHITRA LYONS Facility:[facility] Start: 07-29-2020 End: 07-29-2020 Gynecological examination normal Chitra Lyons Other [employer] Other Start: 08-03-2019 End: 08-03-2019 Well child visit Chitra Lyons Other [employer] Other Procedures Date Procedure Procedure Detail Performing Clinician Start: 09-25-2022 Radiologic exam ches t 2 views Shameka Merino DIRECTOR OF ENTERPRISE ARCHITECTURE - SPLICER OPERATOR Work Phone: Start: 09-25-2022 Streptococcus pyogen es Ag [Presence] in Throat by Immunoassay Shameka Merino DIRECTOR OF ENTERPRISE ARCHITECTURE - SPLICER OPERATOR Work Phone: Start: 09-25-2022 Influenza virus A an d B RNA and SARS-CoV-2 (COVID-19) N gene panel - Respiratory specimen by BRANDON with probe detection Shameka Merino DIRECTOR OF ENTERPRISE ARCHITECTURE [employer] Work Phone: Start: 09-25-2022 Ecg routine ecg w/le ast 12 lds w/i&r Shameka Merino DIRECTOR OF ENTERPRISE ARCHITECTURE [employer] SPLICER OPERATOR Work Phone: Start: 11-29-2021 End: 12-27-2021 Insertion of intrauterine contraceptive device Chitra Lyons Other Depression screening Chitra Lyons Other School admission med ical examination Chitra Lyons Other Plan of Treatment Date Care Activity Detail Author Start: 02-03-2024 DTaP/Tdap/Td vaccine (7 - Td or Tdap) DTaP/Tdap/Td vaccine (7 - Td or Tdap) [facility] Start: 2022 Screening for malign ant neoplasm of cervix Pap smear [facility] Start: 02-22-2022 COVID-19 Vaccine (2 - Pfizer series) COVID-19 Vaccine (2 - Pfizer series) [facility] Start: 2019 Hepatitis C screening Hepatitis C sc reen [facility] Start: 2017 Screening for Chlamy david trachomatis Chlamydia/GC screen [facility] Start: 2016 HIV screening HIV screen [facility] [employer] Start: 2013 Depression Screen Depression Screen [facility] Start: 2012 HPV vaccine (1 - 2-d ose series) HPV vaccine (1 - 2-dose series) [facility] Bacteria identified in Throat by [employer] culture Culture, Throat Microbiology Routine 09/25/2022 10:20 AM EST [facility] Work Phone: End: 09-25-2022 Culture, Throat Culture, Throat Microbiology Routine Once for 1 Occurrences starting 09/25/2022 until 09/25/2022 [facility] Comment on above: Once for 1 Occurrenc es starting 09/25/2022 until 09/25/2022 EKG 12 Lead EKG 12 Lead ECG STAT 09/25/2022 9:39 AM EST [facility]: Immunizations Immunization Date Immunization Notes Care Provider Fa cilisophy 02-11-2019 meningococcal B, unspecified formulation Chitra Lyons Other [facility] Payers Date Payer Category Payer Self-pay 2022 Unknown [id number] 2021 Unknown 2019 Unknown [id number] 2001 Unknown [id number] 2.16.84 [id number] 2001 Unknown [id number] 2.16.84 [id number] 2001 Unknown [id number] 2.16.84 [id number] 2001 Unknown [id number] 2.16. [id number] 2001 Unknown [id number] 2.16. [id number] 2001 Unknown [id number] 2.16. [id number] 2001 Unknown [id number] 2.16. [id number] 2001 Unknown [id number] 2.16.84 [id number] 2001 Unknown [id number] 2.16.84 [id number] 2001 Unknown [id number] 2.16.84 [id number] Social History Date Type Detail Facility Tobacco smoking status TNIS Tobacco smoking consumption unknown [facility] [employer] Phone: Start: 2000 Sex Assigned At Not on file [facility] [employer] Phone: Start: 09-15-2022 End: 09-25-2022 Exposure to SARS-CoV-2 (event) Not sure [employer] [employer] Work Phone: Sex Assigned At Sex Assigned At Bir th [employer] Other Start: 2000 Sex Assigned At Female F [facility] Clinical Notes 10-17-2021 to 07-05-2023 Note Date & Type Note Facility 07-05-2023 Evaluation note Encounter Date Diagnosis Assessment Notes Jun, Encounter for physical examination of student (ICD-10 - Z00.8) [employer] Other 11-15-2023 Evaluation note* Encounter Date Diagnosis Assessment Notes Treatment Notes Treatment Clinical Notes May, Encounter for physical examination of student (ICD-10 - Z00.8) [employer] Other 03-24-2023 Evaluation note* Encounter Date Diagnosis Assessment Notes Treatment Notes Treatment Clinical Notes Sep, Bronchitis (ICD-10 - J40) Finish antibiotic. Still has inhaler from other facility if needed. [employer] Other 03-13-2023 NotePatient Education Materials Name: Dinora [...] to secondhand smoke. ? You may use rfgf-iab-honxbdv medicine to control fever or pain, unless [...] secretions in the nose and lungs. ? Crkm-klj-myloarm cough, cold, and sore-throat medicines will not [...] breathing, wheezing, or pain with breathing ? [phone] [employer]. [address] [place] [address]. All rights reserved. This information is not [...] emergency department for new or worsening of symptoms.[facility]03-07-2023 NotePROCEDURE: XR CHEST (2 VW) CLINICAL [...] by: Beverley Dickerson MD 09/25/[address] [facility] Discharge instructions* Discharge Instructions* Shameka Merino APRN - SPLICER OPERATOR - 09/25/2022 12:06 PM EST Rest, Stay well-hydrated. Oupj-ohh-bcvjitg Tylenol and/or Motrin as needed for fever, [...] Care Everywhere. * URI (Upper Respiratory Infection) ([place]) * URI (Upper Respiratory Infection): Viral ([place]) documented in this encounterBON [employer] Work Phone: [phone]) 643-855203-07-2023 NotePROCEDURE: XR CHEST (2 VW) CLINICAL INFORMATION: cough, chest congestion COMPARISON: None TECHNIQUE: PA and lateral views of the chest performed. FINDINGS: No focal pulmonary consolidation. Cardiac silhouette is not enlarged. No pleural effusion. No pneumothorax. No acute bony abnormality. [facility] [id number] NotePatient Education Materials Name: Dinora Ann Dileep Current Date: 10/17/2021 15:21:23 Vivian/[facility] : 2000 The following sheet(s) are the [...] weeks, you may need to see an resident intern. This is a doctor who treats diseases [...] talk ? Feeling dizzy or lightheaded ? [phone] [employer]. [address] [place] [address]. All rights reserved. This information is not intended as a substitute for professional medical care. Always follow your healthcare professional's instructions. Strep today is negative. Will send for culture to [facility] and notify if it returns positive. Rest [...] emergency department for any new or worsening symptoms[facility] Diagnosis Acute upper respiratory infection- Primary Acute upper respiratory infections of unspecified site documented in this encounter [facility] [employer] Work Phone: evaluation noteNo InformationNort [employer] Other Evaluation noteNo assessment information available [facility] Work Phone: History general Narrative - Reported* Type Description Date Medical History History of blood transfusion Medical History Adult acne Surgical History MYORINGOTOMY WITH TUBE PLACEMEN T - BILATERAL Surgical History PE TUBES Hospitalization History SEE SURGICAL HX [place] Other Summary Purpose Family History No Family [...] and content) DATE CREATED AUTHOR 07/12/2022 [facility] DATE CREATED AUTHOR AUTHOR'S ORGANIZ ATION 10/03/2022 [facility] DATE CREATED AUTHOR AUTHOR'S ORGANIZ ATION 10/24/2022 [facility] DATE CREATED AUTHOR AUTHOR'S ORGANIZ ATION 01/15/2024 [facility] EPIC DATE CREATED AUTHOR AUTHOR'S ORGANIZ ATION 01/16/2024 [facility] Reason for Visit (unrecogniz ed [...] Care Teams (unrecognized sec tion and content) Is/It Project Manager Relationship Specialty Start Date End Date Chitra Lyons MD [address] [place] [phone] PCP - General Family Medicine 09/25/22 [...] BE BASED ON THE PRIMARY CLINICAL RECORDS. [facility] [employer] [facility]. provides no warranty or guarantee of the accuracy or completeness of information in this document.
[2024-04-13 12:39] LABS: Basophils Percent Auto 0.4 % (0.2-2.0); Eosinophils Absolute Auto 0.1 10^3/uL (0.0-0.7); Eosinophils Percent Auto 1.1 % (0.9-7.0); Hematocrit 37.4 % (36.0-48.0); Hemoglobin 12.8 g/dL (12.0-16.0); Immature Granulocytes Abs Auto 0.02 10^3/uL (0.00-0.03); Immature Granulocytes Pct Auto 0.3 % (0.0-0.5); Lymphocytes Absolute Auto 2.5 10^3/uL (1.2-3.8); Lymphocytes Percent Auto 33.2 % (20.5-60.0); Mean Corpuscular HGB Conc 34.2 g/dL (29.9-35.2); Mean Corpuscular Hemoglobin 29.9 pg (26.7-34.0); Mean Corpuscular Volume 87.4 fL (81.0-99.0); Mean Platelet Volume 11.5 fL (9.5-13.5); Monocytes Absolute Auto 0.6 10^3/uL (0.3-0.8); Monocytes Percent Auto 8.1 % (1.7-12.0); Neutrophils Absolute Auto 4.2 10^3/uL (1.4-6.5); Neutrophils Percent Auto 56.9 % (43.0-75.0); Platelet Count 319 10^3/uL (150-450); Red Blood Count 4.28 10^6/uL (4.20-5.40); Red Cell Distribution Width 11.9 % (11.0-15.0); White Blood Count 7.4 10^3/uL (4.0-11.0)
[2024-04-13 13:18] LABS: Free T4 0.98 ng/dL (0.76-1.46)
[2024-04-13 13:23] LABS: Alanine Aminotransferase 17 U/L (14-59); Albumin Level 3.9 g/dL (3.4-5.0); Alkaline Phosphatase 61 U/L (46-116); Anion Gap 11.9; Aspartate Amino Transferase 14 U/L (15-37); BUN Creatinine Ratio 9.7; Bilirubin Total 0.5 mg/dL (0.2-1.0); Calcium 9.4 mg/dL (8.5-10.1); Chloride 101 mmol/L (98-107); Estimated GFR (African America >60 (>=60); Estimated GFR (Non-African Ame >60 (>=60); Globulin 4.1 g/dL; Glucose 96 mg/dL (74-106); Potassium 3.9 mmol/L (3.5-5.1); Sodium 135 mmol/L (136-145)
== END 2024-04-13 11:22 | disposition home or self-care (01) ==
LOC: LAB 11:23
PROVIDERS: PCP Family Medicine; Visit Provider Family Medicine
DX: Z00.00 Encounter for general adult medical examination without abnormal findings (principal); D50.9 Iron deficiency anemia, unspecified; R53.83 Other fatigue
CPT/HCPCS: 36415; 80053; 82728; 84439; 84443; 85025

== ENCOUNTER 2024-08-03 20:37 | Outpatient (REF) | payer BC, SELFPAY ==
--- OUTSIDE RECORDS SUMMARY | 2024-08-03 20:40 | XMS_ITS | CCD ---
Author Organization [facility] CliniSyde Care Team Providers Care Financial Health Counselor Name Role Phone SERENA, DR CHITRA Aparicio Attending Unavailable SEERNA, DR CHITRA Aparicio Consulting Unavailable LYONS, DR [...] Unavailable LYONS, DR CHITRA Aparicio Admitting Unavailable Serena LOPEZ, Chitra Primary Care Provider [phone] Serena LOPEZ, Chitra Rea Primary Care Unava glendy DALAL, Alice Hunter Attending Unavailable Diane NAVARRO-JACOBY, Christina Williamson Attending Unavailable Diane DALAL, Christina Williamson Attending Unavailable Serena LOPEZ, Chitra Rea Primary Care Unava glendy Arnold MD, Tyler Souza Attending Unav ailChitra Feng Unavailable CHITRA LYONS Primary Care Unavailable SERJIO KIRK Attending Unavailable SERJIO KIRK Attending Unavailable SERJIO KIRK Attending Unavailable Serjio Kirk Attending Provider Serjio Kirk Attending Unavailable Serjio Kirk Admitting Unavailable DO Serjio Kirk Attending Provider [phone] Allergies Allergy Classification Reported Allergen(s) Allergy Type Date of Onset Reaction(s) Facility (1 source) No Known Medication Allergies; Translations: [No Known Medication Allergies] Propensity to adverse reactions to drug (disorder) [facility] Repository (3 sources) patient allergy list reviewed by nurse or physicia Propensity to adverse reactions 8 Comment:Done [facility] Other (3 sources) Allergies Reconciled Propensity to adverse reactions Unknown [facility] Other Medications Current Medications Medication Drug Class(es) Dates Sig (Normalized) Sig (Original) [id number] 200 actuat albuterol 0.09 mg/actuat metered dose [...] hemolytic anemia; 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 Deficiency and other anemia (1 source) Iron deficiency anemia; Translations: [Iron deficiency anemia, unspecified] 04-13-2024 Episodic Deficiency and other anemia (1 source) Iron deficiency anemia, unspecified; Translations: [Iron deficiency anemia, unspecified] 04-13-2024 Episodic Malaise and fatigue (5 sources) Malaise and fatigue; Translations: [Other malaise and fatigue] Onset: 04-22-2014 04-13-2024 Episodic Other endocrine disorders (3 sources) Delayed puberty; [...] sexual mode of transmission] Resolved: 07-29-2020 Episodic Nausea and vomiting (3 sources) Nausea [...] Test Name Value Interpretation Reference Range Facility [facility] 01-14-2024 L Specimen: [id number] Received: 01/15/24 Status: SUDARSHAN Hill Num: [id number] Spec Type: Surgical Subm Dr: Serjio Kirk Tissues: A Endocervix - Curettings (ECC) Procedures: HE/2, Gross/Micro L4 Age/ Patient Sex Location Account Attending Physician Dinora Ann 23/F LABELL [id number] Serjio Kirk SPEC NUM: [id number] RECD: 01/15/24 STATUS: SUDARSHAN [place] NUM: [id number] XU: 01/14/[address]: Serjio Kirk ENTERED: 01/15/[address]: Davion,Lab SPEC TYPE: Surgical DEPT: BOBBY ANNABELLE ORDERED: HE/2, Gross/Micro L4 ORDERED: HE/2, Gross/Micro L4 Pathological Diagnosis Endocervix, curettage: Koilocytic atypia consistent with HPV infection. Clinical Information LGSIL Gross Description Received in formalin labeled with the patient's name, date of and endocervical curettings are multiple minute epps tissue fragments admixed with mucus measuring 1.1 x 0.4 x 0.1 cm in aggregate, entirely submitted in A1. CPT Codes 60417 -------- -------- Specimen: [id number] Received: 01/15/24 Status: SUDARSHAN Hill Num: [id number] Spec Type: Surgical Subm Dr: Serjio Kirk Tissues: A Endocervix - Curettings (ECC) Procedures: CHUN/2, Gross/Micro L4 -------- Patient: Dinora Ann [id number] (Continued) -------- Signed (signature on file) January Morfin MD 01/16/24 1732 Normal [facility] Human papilloma virus 16+18+ 31+33+35+39+45+51+52+56+58+59+66+68 DNA [Presence] in [place] 12-24-2023 HPV 16+18+31+33+35+39+45 +51+52+56+58+59+66+6 8 DNA Probe+sig amp Ql (Cvx) Note Abnormal . [facility] Comment on above: TESTS RESULT FLAG UN ITS REF RANGE LAB DI AGNOSIS: [A] 02 EPITHELIAL CELL ABNORMALITY. LOW GRADE SQUAMOUS INTRAEPITHELIAL LESION (LSIL).Recommendation: [A] 02 Suggest follow up as clinically appropriate.Specimen adequacy: 02 Satisfactory for evaluation. Endocervical and/or squamous metaplastic cells (endocervical component) are present.Performed by: 02 Lali Foreman, Die Cast Die Maker (ASCP)Electronically si... 02 Jacqueline Garner MD, Pathologist. [...] High <-Panic Low,>-Panic High,A-Abnormal,AA-Critical Abnormal ---Performed at:[email or web address] [id number] Anabela Buckner MD, Enzmqlprv at: =[facility] [id number] Director: Anabela Buckner MD, Phone: [phone] at: [facility] [id number] Director: Anabela Buckner MD, Phone: [phone] No Panel Informationon 12-23 Reference Lab Test Patient Age Note . [facility] Comment on above: TESTS RESULT FLAG UN ITS REF RANGE LAB Clinician Provided Cytology Information Source.............Cervix;Endocervix No. of containers..01 ThinPrep VialAge Hollando ACOG Wendy... FLAG LEGEND: L-Low Normal,H-High Normal,LL-Alert Low,HH-Alert High <-Panic Low,>-Panic High,A-Abnormal,AA-Critical Abnormal ---Performed at:01 =G [facility] [place] [address] Anabela Buckner MD, Hep Bs Abon 10-02-2022 Hep B Surface Antibody Interp Positive Normal [facility] Comment on above: Result Comment: Shani ent is considered to be immune to infection with HBV. Performed By: #### H BSAB #### [facility] [address] [place] [address] Hep Bs Ab >500.[address] [facility] Comment on above: Performed By: #### H BSAB #### [facility] [address] [place] [address] Urgent Care Office/Clinic No ashok 10-01-2022 Urgent Care Office/Clinic Note Chief Complaint pt states since last saturday has been having body aches, cough, congestion. Was seen 09/25 @ [facility] and given inhaler, mucinex. has been using for a week with no relief. History of Present Illness 22-year-old female presents today due to an illness that started 6 days ago. She was seen at [facility] and diagnosed with an upper respiratory infection. She was given albuterol, Mucinex, and an oral steroid. 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 She tells machine sign writer she is fatigued as she is [...] caps, 0 Refill(s), 10/08/22 11:08:00 EDT, Pharmacy: [facility]/pharmacy #[id number] predniSONE, 2 tabs, Oral, Daily, X 7 days, # 14 tabs, 0 Refill(s), 10/08/22 11:08:00 EDT, Pharmacy: [facility]/pharmacy #[id number] AMB Influenza POC POC SARS Antigen Card [...] by Alice Garcia 10/01/22 11:11 EDT Normal [facility] EKG 12-LEADon 09-25-2022 EKG 12-LEAD 69 69 136 94 398 426 58 65 26 Normal sinus rhythm Normal ECG No previous ECGs available Confirmed by RODRIGUEZ RIBEIRO ([id number]) on 09/25/2022 8:25:29 PM [email or web address] 30&Date=01-21-2023&Ti me=[id number]& TestType=ECG&Site=3&O utputType=PDF&Ext=PDF Normal [facility] Influenza virus A and B RNA and SARS-CoV-2 (COVID-19) N gene panel BRANDON+probe (Resp)on 09-25-2022 FLUAV RNA BRANDON+probe Ql (Resp) Not detected NOT DETECTED [facility] FLUBV RNA BRANDON+probe Ql (Resp) Not detected NOT DETECTED [facility] Comment on above: Performed at [facility] [address] [place] [address] SARS-CoV-2 (COVID-19) RNA BRANDON+probe Ql (Resp) Not detected NOT DETECTED [facility] Comment on above: Not Detected results do [...] (EUA) only. Fact sheet for Healthcare Providers: https://www.fda.gov/media/995553/download Fact sheet for Patients: https://www.fda.gov/media/821906/download [facility] S. pyogenes Ag EIA Ql (Throa t)on 09-25-2022 S. pyogenes Ag Ql (Throat) Negative NEGATIVE [facility] S. pyogenes Org specific cx Ql (Throat) INDICATED [facility] Comment on above: Performed at [facility] [address] [id number] [facility] XR CHEST (2 VW)on 09-25-2022 1. No acute cardiopulmonary finding. This report has been created using voice recognition software. It may contain minor errors which are inherent in voice recognition technology. Final report electronically signed by Dr Beverley Dickerson on 09/25/2022 11:59 AM [facility] Beverley Woodard MD - 09/25/2022 PROCEDURE: XR [...] Dr Beverley Dickerson on 09/25/2022 11:59 AM [facility] Phone: Radiology Study observation (narrative) [facility] Phone: XR CHEST (2 VW)Ordered By: Loree Dickerson on 09-25-2022 [facility] Phone: HEPATITIS B SURFACE ANTIBODY , QUANTon 07-06-2022 Hepatitis B Surf AB Quant >1000.0 Normal Immunity>9.9 [facility] Comment on above: Result Comment: Stat us of Immunity Anti-HBs Level Inconsistent with Immunity 0.0 - 9.9 Consistent with Immunity >9.9 Performed By: #### H EPBSRF #### [facility] [address] [place] [address] Dr. Jesus Mei DRUG SCREEN RAPID (URINE)on 07-05-2022 AMP Negative Normal NEGATIVE [facility] Comment on above: Performed By: #### D RUGRPD #### [facility] [address] [address] [address] Jesus Mei [facility] Negative Normal NEGATIVE [facility] Comment on above: Performed By: #### D RUGRPD #### [facility] [address] [address] [address] Jseus Mei [facility] Negative Normal NEGATIVE [facility] Comment on above: Performed By: #### D RUGRPD #### [facility] [address] [address] [address] Jesus Mei BZO Negative Normal NEGATIVE [facility] Comment on above: Performed By: #### D RUGRPD #### [facility] [address] [place] [address] Dr. Jesus Mei CHRISTINA Negative Normal NEGATIVE [facility] Comment on above: Performed By: #### D RUGRPD #### [facility] [address] [place] [address] Dr. Jesus Mei CUT-OFFS SEE BELOW Normal [facility] Comment on above: Result Comment: AMP (Amphetamine): 500ng/mL, BAR (Barbituates): 200 ng/mL, BZO (Benzodiazepines): 150 ng/mL, BUP (Buprenorphine): 10 ng/mL, CHRISTINA (Cocaine): 150 ng/mL, mAMP (Methamphetamine): 500 ng/mL, MTD (Methadone): 200 ng/mL, OPI (Opiates): 100 ng/mL, OXY (Oxycodone): 100 ng/mL, PCP (Phencyclidine): 25 ng/mL, PPX (Propoxyphene): 300 ng/mL, THC (Cannabinoids): 50 ng/mL, TCA (Trycyclic Antidepressants): 300 ng/mL Performed By: #### D RUGRPD #### [facility] [address] [place] [address] Dr. Jesus Mei DRUG CUT HEADER DRUG CLASS TEST SYSTEM CUT-OFF CONCENTRATIONS ARE FOLLOWS: Normal [facility] Comment on above: Performed By: #### D RUGRPD #### [facility] [address] [place] [address] Dr. Jesus Mei mAMP Negative Normal NEGATIVE [facility] Comment on above: Performed By: #### D RUGRPD #### [facility] [address] [place] [address] Dr. Jesus Mei MTD Negative Normal NEGATIVE [facility] Comment on above: Performed By: #### D RUGRPD #### [facility] [address] [place] [address] Dr. Jesus Mei OPI Negative Normal NEGATIVE [facility] Comment on above: Performed By: #### D RUGRPD #### [facility] [address] [place] [address] Dr. Jesus Mei OXY Negative Normal NEGATIVE [facility] Comment on above: Performed By: #### D RUGRPD #### [facility] [address] [address] [address] Jesus Mei PCP Negative Normal NEGATIVE [facility] Comment on above: Performed By: #### D RUGRPD #### [facility] [address] [place] [address] Dr. Jesus Mei PPX Negative Normal NEGATIVE [facility] Comment on above: Performed By: #### D RUGRPD #### [facility] [address] [place] [address] Dr. Jesus Mei TCA Negative Normal NEGATIVE [facility] Comment on above: Performed By: #### D RUGRPD #### [facility] [address] [place] [address] Dr. Jesus Mei THC Negative Normal NEGATIVE [facility] Comment on above: Performed By: #### D RUGRPD #### [facility] [address] [place] [address] Dr. Jesus Mei DRUG SCREEN RAPID (URINE)on 02-09-2022 AMP Negative Normal NEGATIVE [facility] Comment on above: Performed By: #### D RUGRPD #### [facility] [address] [place] [address] Dr. Jesus Mei BAR Negative Normal NEGATIVE [facility] Comment on above: Performed By: #### D RUGRPD #### [facility] [address] [place] [address] Dr. Jesus Mei BUP Negative Normal NEGATIVE [facility] Comment on above: Performed By: #### D RUGRPD #### [facility] [address] [place] [address] Dr. Jesus Mei BZO Negative Normal NEGATIVE [facility] Comment on above: Performed By: #### D RUGRPD #### [facility] [address] [place] [address] Dr. Jesus Mei CHRISTINA Negative Normal NEGATIVE [facility] Comment on above: Performed By: #### D RUGRPD #### [facility] [address] [place] [address] Dr. Jesus Mei CUT-OFFS SEE BELOW Normal [facility] Comment on above: Result Comment: AMP (Amphetamine): 500ng/mL, BAR (Barbituates): 200 ng/mL, BZO (Benzodiazepines): 150 ng/mL, BUP (Buprenorphine): 10 ng/mL, CHRISTINA (Cocaine): 150 ng/mL, mAMP (Methamphetamine): 500 ng/mL, MTD (Methadone): 200 ng/mL, OPI (Opiates): 100 ng/mL, OXY (Oxycodone): 100 ng/mL, PCP (Phencyclidine): 25 ng/mL, PPX (Propoxyphene): 300 ng/mL, THC (Cannabinoids): 50 ng/mL, TCA (Trycyclic Antidepressants): 300 ng/mL Performed By: #### D RUGRPD #### [facility] [address] [place] [address] Dr. Jesus Mei DRUG CUT HEADER DRUG CLASS TEST SYSTEM CUT-OFF CONCENTRATIONS ARE FOLLOWS: Normal [facility] Comment on above: Performed By: #### D RUGRPD #### [facility] [address] [place] [address] Dr. Jesus Mei mAMP Negative Normal NEGATIVE [facility] Comment on above: Performed By: #### D RUGRPD #### [facility] [address] [place] [address] Dr. Jesus Mei MTD Negative Normal NEGATIVE [facility] Comment on above: Performed By: #### D RUGRPD #### [facility] [address] [place] [address] Dr. Jesus Mei OPI Negative Normal NEGATIVE [facility] Comment on above: Performed By: #### D RUGRPD #### [facility] [address] [place] [address] Dr. Jesus Mei OXY Negative Normal NEGATIVE [facility] Comment on above: Performed By: #### D RUGRPD #### [facility] [address] [place] [address] Dr. Jesus Mei PCP Negative Normal NEGATIVE [facility] Comment on above: Performed By: #### D RUGRPD #### [facility] [address] [address] [address] Jesus Mei PPX Negative Normal NEGATIVE [facility] Comment on above: Performed By: #### D RUGRPD #### [facility] [address] [address] [address] Jesus Mei TCA Negative Normal NEGATIVE [facility] Comment on above: Performed By: #### D RUGRPD #### [facility] [address] [address] [address] Jesus Mei THC Negative Normal NEGATIVE [facility] Comment on above: Performed By: #### D RUGRPD #### [facility] [address] [address] [address] Jesus Mei C BP Strepon 10-19-2021 S. pyogenes Ag IA Ql (Unsp spec) Automatically ordered based on Negative Rapid Strep POC Test This is strictly a screening test for Strep Group A( Streptococcus pyogenes). No other pathogens will be noted. ---- Final Backup plate negative for Group A Streptococus Resulted at [facility] Normal [facility] Comment on above: Performed By: #### B P #### [facility] ([facility]) [address] [id number] [facility] [address] [id number] Urgent Care Office/Clinic No ashok 10-17-2021 Urgent [...] is negative. Will send for culture to [facility] and notify if it returns [...] for any new or worsening symptoms. Orders: [id number] AMB Rapid Strep POC Medical Decision Making [...] by Christina Martínez 10/17/21 15:20 EDT Normal [facility] DRUGS OF ABUSE 10 PANEL w/CO NFIRMon 07-19-2021 Amphetamines Screen, Urine Negative Normal Gytvsx=8761 [facility] Comment on above: Performed By: #### 1 0PDRUG #### [facility] [address] [address] [address] Jesus Mei Barbiturates Screen, Urine Negative Normal Xvfahz=306 [facility] Comment on above: Performed By: #### 1 0PDRUG #### [facility] [address] [place] [address] Dr. Jesus Mei Benzodiazepines Screen, Urine Negative Normal Hqqdzm=217 [facility] Comment on above: Performed By: #### 1 0PDRUG #### [facility] [address] [place] [address] Dr. Jesus Mei Cannabinoid Screen, Urine Negative Normal Cutoff=20 [facility] Comment on above: Performed By: #### 1 0PDRUG #### [facility] [address] [address] [address] Jesus Mei Cocaine (Metab.) Screen, Urine Negative Normal Usizde=525 [facility] Comment on above: Performed By: #### 1 0PDRUG #### [facility] [address] [place] [address] Dr. Jesus Mei Creatinine, Urine 45.9 mg/dL Normal 20.0-300.0 [facility] Comment on above: Performed By: #### 1 0PDRUG #### [facility] [address] [place] [address] Dr. Jesus Mei Methadone Screen, Urine Negative Normal Tdkske=654 [facility] Comment on above: Performed By: #### 1 0PDRUG #### [facility] [address] [place] [address] Dr. Jesus Mei Opiate Screen, Urine Negative Normal Nqdmig=586 [facility] Comment on above: Result Comment: Opia te test includes Codeine, Morphine, Hydromorphone, Hydrocodone. Performed By: #### 1 0PDRUG #### [facility] [address] [place] [address] Dr. Jesus Mei Oxycodone/Oxymorphon e, Urine Negative Normal Sdbbxq=403 [facility] Comment on above: Result Comment: Test includes Oxycodone and Oxymorphone Performed By: #### 1 0PDRUG #### [facility] [address] [place] [address] Dr. Jesus Mei pH (U) 6.6 [pH] Normal 4.5-8.9 [facility] Comment on above: Performed By: #### 1 0PDRUG #### [facility] [address] [address] [address] Jesus Mei Phencyclidine Screen, Urine Negative Normal Cutoff=25 [facility] Comment on above: Performed By: #### 1 0PDRUG #### [facility] [id number] Jesus Mei Please Note: Comment Normal [facility] Comment on above: Result Comment: Drug -test results should be interpreted in the context of clinical information. Patient metabolic variables, specific drug chemistry, and specimen characteristics can affect test outcome. Technical consultation is available if a test result is inconsistent with an expected outcome. ([email or web address] or call toll-free [phone]) . Drug brands, if listed herein, are trademarks of their respective owners. Performed By: #### 1 0PDRUG #### [facility] [address] [address] [address] Jesus Mei Propoxyphene Screen, Urine Negative Normal Ilvlcw=916 [facility] Comment on above: Performed By: #### 1 0PDRUG #### [facility] [address] [address] [address] Jesus Mei Vital Signs Date Time Vital Sign Value Performing Clinician Facility 04-13-2024 10:53-0400 Body height 167.64 cm DO Serjio Yelena Work Phone: [facility] 04-13-2024 10:53-0400 Body mass index (BMI) [Ratio] 27.1 kg/m2 DO Serjio Yelena Work Phone: [facility] 04-13-2024 10:53-0400 Body weight 76.2 kg DO Serjio Yelena Work Phone: [facility] 04-13-2024 10:53-0400 Diastolic blood pressure 85 mm[Hg] DO Serjio Yelena Work Phone: [facility] 04-13-2024 10:53-0400 Heart rate 59 /min DO Serjio Yelena Work Phone: [facility] 04-13-2024 10:53-0400 Systolic blood pressure 121 mm[Hg] DO Serjio Kirk Work Phone: [facility] 10-12-2022 12:00-0400 Body height 167.64 cm Chitra Lyons Other [facility] Other 10-12-2022 12:00-0400 Body mass index (BMI) [Ratio] 26.31 kg/m2 Chitra Lyons Other [facility] Other 10-12-2022 12:00-0400 Body temperature 98.7 [degF] Chitra Lyons Other [facility] Other 10-12-2022 12:00-0400 Body weight 73.94 kg Chitra Lyons Other [facility] Other 10-12-2022 12:00-0400 Diastolic blood pressure 64 mm[Hg] Chitra Lyons Other [facility] [employer] Other 10-12-2022 12:00-0400 SaO2% (BldA) [Mass fraction] 98 % Chitra Lyons Other [facility] Other 10-12-2022 12:00-0400 Systolic blood pressure 110 mm[Hg] Chitra Lyons Other [facility] Other 09-25-2022 09:47-0500 Body temperature 97.5 [degF] Chitra Lyons MD Work Phone: [employer] 09-25-2022 09:43-0500 Body height 167.6 cm Chitra Lyons MD Work Phone: [employer] 09-25-2022 09:43-0500 Body mass index (BMI) [Ratio] 25.82 kg/m2 Chitra Lyons MD Work Phone: [employer] 09-25-2022 09:43-0500 Body weight 72.58 kg Chitra Lyons MD Work Phone: [facility] [employer] 09-25-2022 09:43-0500 Diastolic blood pressure 76 mm[Hg] Chitra Lyons MD Work Phone: [facility] [employer] 09-25-2022 09:43-0500 Heart rate 66 /min Chitra Lyons MD [facility] 09-25-2022 09:43-0500 Respiratory rate 16 /min Chitra Lyons MD Work Phone: [facility] [employer] 09-25-2022 09:43-0500 SaO2% (BldA) [Mass fraction] 100 % Chitra Lyons MD Work Phone: [facility] 09-25-2022 09:43-0500 Systolic blood pressure 124 mm[Hg] Chitra Lyons MD Work Phone: [facility] En[facility] Encounter Date Encounter Type Care Provider Facility Start: 04-13-2024 Patient encounter status DO Co isis Yelena Work Phone: [facility] Start: 04-13-2024 End: 04-13-2024 ambulatory DO Serjio Yelena Work Phone: [facility] Work Phone: Start: 04-13-2024 End: 04-13-2024 Encounter for general adult medical examination without abnormal findings DO Serjio Yelena Work Phone: [facility] Start: 04-13-2024 End: 04-13-2024 Patient encounter procedure DO Serjio Yelena Work Phone: [facility] Work Phone: Start: 01-14-2024 End: 01-14-2024 ambulatory Serjio Yelena [facility] Work Phone: Start: 01-14-2024 End: 01-14-2024 Departed Referred Serjio Yelena Work Phone: [facility] Start: 01-14-2024 End: 01-14-2024 ambulatory SERJIO YELENA Not Available Start: 12-24-2023 Non-patient / Non-visit Serjio Yelena Work Phone: [facility] Work Phone: Start: 12-24-2023 End: 12-24-2023 ambulatory SERJIO YELENA Not Available Start: 11-07-2023 End: 11-07-2023 ambulatory SERJIO YELENA Not Available Start: 07-05-2023 End: 07-05-2023 ambulatory Chitra Lyons Other [employer] Other Start: 07-05-2023 Physical examination Chitra Lyons [facility] Start: 07-05-2023 Telephone encounter Chitra Lyons [facility] Start: 06-11-2023 End: 06-11-2023 ambulatory Chitra Lyons Other [employer] Other Start: 06-11-2023 Telephone encounter Chitra Lyons [facility] Start: 06-05-2023 End: 06-05-2023 ambulatory Chitra Lyons Other [employer] Other Start: 06-05-2023 Physical examination Chitra [place] [facility] Start: 06-05-2023 Telephone encounter Chitra Lyons [facility] Start: 02-07-2023 End: 02-07-2023 ambulatory Chitra Lyons Other [employer] Other Start: 02-07-2023 Telephone encounter Chitra Lyons [facility] Start: 01-31-2023 End: 01-31-2023 ambulatory Chitra Lyons Other [employer] Other Start: 01-31-2023 Telephone encounter Chitra Lyons [facility] Start: 10-12-2022 End: 10-12-2022 ambulatory Chitra Lyons Other [employer] Other Start: 10-12-2022 Office outpatient vi sit 15 minutes Chitra Lyons [facility] Start: 10-02-2022 End: 10-03-2022 ambulatory Chitra Lyons MD Facility:[facility] Start: 10-01-2022 End: 10-01-2022 ambulatory Chitra Lyons MD Facility:[facility] Start: 09-25-2022 End: 09-25-2022 Emergency department patient visit CHITRA LYONS [facility] Start: 09-25-2022 End: 09-25-2022 Emergency department patient visit Chitra Lyons MD Work Phone: [facility] Comment on above: Acute upper respirat ory infection (Primary Dx) Start: 07-05-2022 End: 07-06-[address] CHITRA LYONS Facility:[facility] Start: 02-09-2022 End: 02-10-[address] CHITRA LYONS Facility:[facility] Start: 10-17-2021 End: 10-18-2021 ambulatory Christina Contreras [employer] Facility:[facility] Start: 07-17-2021 End: 07-18-[address] CHITRA LYONS Facility:[facility] Start: 07-29-2020 End: 07-29-2020 Gynecological examination normal Chitra Lyons Other [employer] Other Start: 08-03-2019 End: 08-03-2019 Well child visit Chitra Lyons Other [employer] Other Procedures Date Procedure Procedure Detail Performing Clinician Start: 09-25-2022 Radiologic exam ches t 2 views Shameka Merino [employer] Work Phone: Start: 09-25-2022 Streptococcus pyogen es Ag [Presence] in Throat by Immunoassay Shameka Merino [employer] Work Phone: Start: 09-25-2022 Influenza virus A an d B RNA and SARS-CoV-2 (COVID-19) N gene panel - Respiratory specimen by BRANDON with probe detection Shameka Merino [employer] [facility] Work Phone: Start: 09-25-2022 Ecg routine ecg w/le ast 12 lds w/i&r Shameka Merino [employer] [facility] Work Phone: Start: 11-29-2021 End: 12-27-2021 Insertion of intrauterine contraceptive device Chitra Lyons Other Depression screening Chitra Lyons Other School admission med ical examination Chitra Lyons Other Plan of Treatment Date Care Activity Detail Author Start: 02-03-2024 DTaP/Tdap/Td vaccine (7 - Td or Tdap) DTaP/Tdap/Td vaccine (7 - Td or Tdap) [facility] Start: 2022 Screening for malign ant neoplasm of cervix Pap smear [facility] Start: 02-22-2022 COVID-19 Vaccine (2 - Pfizer series) COVID-19 Vaccine (2 - Pfizer series) [facility] Start: 2019 Hepatitis C screening Hepatitis C sc reen [facility] Start: 2017 Screening for Chlamy david trachomatis Chlamydia/GC screen [facility] Start: 2016 HIV screening HIV screen [facility] [employer] Start: 2013 Depression Screen Depression Screen [facility] Start: 2012 HPV vaccine (1 - 2-d ose series) HPV vaccine (1 - 2-dose series) [facility] Bacteria identified in Throat by Aerobe culture Culture, Throat Microbiology Routine 09/25/2022 10:20 AM EST [employer] Work Phone: Comprehensive metabo lic 2000 panel - Serum or Plasma [facility] End: 09-25-2022 Culture, Throat Culture, Throat Microbiology Routine Once for 1 Occurrences starting 09/25/2022 until 09/25/2022 [facility] Comment on above: Once for 1 Occurrenc es starting 09/25/2022 until 09/25/2022 EKG 12 Lead EKG 12 Lead ECG STAT 09/25/2022 9:39 AM EST [employer] Work Phone: [facility] Immunizations Immunization Date Immunization Notes Care Provider Cristi mcgill 02-11-2019 meningococcal B, unspecified formulation Chitra Lyons Other [facility] Payers Date Payer Category Payer Self-pay 2022 Unknown [id number] 2021 Unknown 2019 Unknown [id number] 2001 Unknown [id number] 2.16.84 [id number] 2001 Unknown [id number] 2.16.84 [id number] 2001 Unknown [id number] 2.16.84 [id number] 2001 Unknown [id number] 2.16. [id number] 2001 Unknown [id number] 2.16. [id number] 2001 Unknown [id number] 2.16. [id number] 2001 Unknown [id number] 2.16. [id number] 2001 Unknown [id number] 2.16.84 [id number] 2001 Unknown [id number] 2.16.84 [id number] 2001 Unknown [id number] 2.16.84 [id number] Social History Date Type Detail Facility Tobacco smoking status ORIS Tobacco smoking consumption unknown [employer] Phone: Start: 2001 Sex Assigned At Not on file [employer] Phone: Start: 09-15-2022 End: 09-25-2022 Exposure to SARS-CoV-2 (event) Not sure [facility] [employer] Phone: Sex Assigned At Sex Assigned At Bir th [facility] [employer] Other Start: 2001 Sex Assigned At Female F [facility] Clinical Notes 10-17-2021 to 07-05-2023 Note Date & Type Note Facility 07-05-2023 Evaluation note Encounter Date Diagnosis Assessment Notes Jun, Encounter for physical examination of student (ICD-10 - Z00.8) [facility] [employer] Other 11-15-2023 Evaluation note* Encounter Date Diagnosis Assessment Notes Treatment Notes Treatment Clinical Notes May, Encounter for physical examination of student (ICD-10 - Z00.8) [facility] [employer] Other 03-24-2023 Evaluation note* Encounter Date Diagnosis Assessment Notes Treatment Notes Treatment Clinical Notes Sep, Bronchitis (ICD-10 - J40) Finish antibiotic. Still has inhaler from other facility if needed. [facility] Other 03-13-2023 NotePatient Education Materials Name: Dinora [...] to secondhand smoke. ? You may use vlcl-pxf-nbucgml medicine to control fever or pain, unless [...] secretions in the nose and lungs. ? Uukt-kev-ajepkci cough, cold, and sore-throat medicines will not [...] breathing, wheezing, or pain with breathing ? [id number] [employer]. [address] [place] [address]. All rights reserved. This information is not [...] emergency department for new or worsening of symptoms.[facility]03-07-2023 NotePROCEDURE: XR CHEST (2 VW) CLINICAL [...] by: Beverley Dickerson MD 09/25/22 [facility] Discharge instructions* Discharge Instructions* Shameka Merino, [employer] - 09/25/2022 12:06 PM EST Rest, Stay well-hydrated. Pokb-lqi-xnqpdyx Tylenol and/or Motrin as needed for fever, [...] Care Everywhere. * URI (Upper Respiratory Infection) (Turkmen) * URI (Upper Respiratory Infection): Viral (Turkmen) documented in this encounterBON [employer] Work Phone: [phone] 117-499103-07-2023 NotePROCEDURE: XR CHEST (2 VW) CLINICAL INFORMATION: cough, chest congestion COMPARISON: None TECHNIQUE: PA and lateral views of the chest performed. FINDINGS: No focal pulmonary consolidation. Cardiac silhouette is not enlarged. No pleural effusion. No pneumothorax. No acute bony abnormality. [facility] [id number] NotePatient Education Materials Name: Dinora Ann Current Date: 10/17/2021 15:21:23 [place] : 2000 The following sheet(s) are the [...] weeks, you may need to see an automotive parts counterperson. This is a doctor who treats diseases [...] talk ? Feeling dizzy or lightheaded ? [phone] [employer]. [address] [place] [address]. All rights reserved. This information is not intended as a substitute for professional medical care. Always follow your healthcare professional's instructions. Strep today is negative. Will send for culture to [facility] and notify if it returns [...] emergency department for any new or worsening symptoms.[facility]* Diagnosis Acute upper respiratory infection- Primary Acute upper respiratory infections of unspecified site documented in this encounter [facility] Work Phone: evaluation noteNo InformationNort [employer] Other Evaluation noteNo assessment information [facility] Work Phone: Evaluation note* Diagnosis Onset Date Resolution Status Fatigue acute Iron deficiency anemia acute Wellness examination [facility] Work Phone: History general Narrative - Reported* Type Description Date Medical History History of blood transfusion Medical History Adult acne Surgical History MYORINGOTOMY WITH TUBE PLACEMEN T - BILATERAL Surgical History PE TUBES Hospitalization History SEE SURGICAL HX [facility] Other Summary Purpose Family History Relationship Condition Age at Onset Recorded Date/T mike family member History of migraine Unknown grandparent Malignant neoplasm of breast Unknown Malignant neoplasm Unknown grandparent Family history of lung cancer Unknown mother Hypothyroidism Unknown Advance Directives Advance Directive Response Recorded Date/ Time Advance Directives No March 10:40am Additional Source Comments INFORMATION SOURCE (unrecogn ized section and content) DATE CREATED AUTHOR 07/12/2022 [facility] pital DATE CREATED AUTHOR AUTHOR'S ORGANIZ ATION 10/03/2022 [facility] DATE CREATED AUTHOR AUTHOR'S ORGANIZ ATION 10/24/2022 [facility] DATE CREATED AUTHOR AUTHOR'S ORGANIZ ATION 01/15/2024 [facility] dical Specialists EPIC DATE CREATED AUTHOR AUTHOR'S ORGANIZ ATION 01/16/2024 [facility] y[facility] Reason for Visit (unrecogniz ed [...] Care Teams (unrecognized sec tion and content) Financial Health Counselor Relationship Specialty Start Date End Date Chitra Lyons MD [address] [place] [address] PCP - General Family Medicine 09/25/22 Team Status: Active Member Role Status Dates Chitra Lyons MD Primary Care Provider Active Start: December 24, 2023 Serjio Kirk Attending Provider Active Start: Devorah aponte 2023 Team Status: Inactive Member Role Status Dates Serjio Kirk Attending Provider Active Start: Devorah 2023 End: January 14, 2024 Team Status: Active Member Role Status Dates Chitra Lyons MD Primary Care Provider Active Team Status: Inactive Member Role Status Dates Serjio Kirk DO Attending Provider Active Start : January 14, 2024 End: January 14, 2024 Team Status: Inactive Member Role Status Dates Chitra Lyons MD Primary Care Provide r, Attending Provider Active Start: April 13, 2024 End: April 13, 2024 Goals (unrecognized section and content) Goals [...] BE BASED ON THE PRIMARY CLINICAL RECORDS. [employer] [facility]. provides no warranty or guarantee of the accuracy or completeness of information in this document.
[2024-08-06 13:09] LABS: HPV Aptima Negative (Negative); Pap IG (Image Guided) Note (.)
== END 2024-08-03 20:38 | disposition home or self-care (01) ==
LOC: LAB 20:37
PROVIDERS: PCP Family Medicine; Visit Provider Obstetrics & Gynecology
DX: R87.612 Low grade squamous intraepithelial lesion on cytologic smear of cervix (LGSIL) (principal)
CPT/HCPCS: 88175

== ENCOUNTER 2025-02-10 15:14 | Outpatient (REF) | payer BC, SELFPAY ==
--- OUTSIDE RECORDS SUMMARY | 2025-02-10 13:40 | XMS_ITS | Encounter Summary ---
Author Organization [facility] Address [address] [place] [address] Care Team Providers Care Dining Room Tables Set Up Attendant Name Role Phone Chitra Collazo MD Primary Care Provider [phone] Reason for Visit * Reason Comments Well Women Visit Encounter Details Date Type Department Care Team (Latest Contact Info) Description 02/10/2025 1:40 PM EDT Procedure Visit [facility] [address] [place] [address] Luis Manuel Kirk, DO [address] [facility] [place] [address] Well woman exam with routine gynecological exam Social History Tobacco Use Types Packs/Day Years Used Date Smoking Tobacco: Never Smokeless Tobacco: Never Alcohol Use Standard Drinks/Week Comments Never 0 (1 standard drink = 0.6 oz pur e alcohol) Comments No Sex and Gender Information Value Date Recorded Sex Assigned at Not on file Legal Sex Female 7:20 PM EDT Gender Identity Not on file Sexual Orientation Not on file documented as of this encounter Last Filed Vital Signs Vital Sign Reading Time Taken Comments Blood Pressure 110/72 02/10/2025 1:48 PM EDT Pulse - - Temperature - - Respiratory Rate - - Oxygen Saturation - - Inhaled Oxygen Concentration - - Weight 77.7 kg (171 lb 6.4 oz) 02/10/2025 1:48 P M EDT Height - - Body Mass Index 27.66 01/14/2024 8:49 AM EDT documented in this encounter Plan of Treatment Upcoming Encounters Date Type Department Care Team (Late Contact Info) Description 02/14/2026 9:00 AM EDT Procedure Visit [facility] [address] [place] [address] Luis Manuel Kirk, [address] [place] [address] Scheduled Orders Name Type Priority Associated Diagnoses Orde r Schedule Pap Smear Pathology and Cytology Routine Well woman exam with routine gynecological exam Ordered: 02/10/2025 documented as of this encounter Visit Diagnoses Diagnosis Well woman exam with routine gynecological exam Routine gynecological examination documented in this encounter Care Teams Dining Room Tables Set Up Attendant Relationship Specialty Start Date End Date Chitra Collazo MD [address] [facility] [place] [address] PCP - General Family Medicine 11/07/23 documented as of this encounter
--- OUTSIDE RECORDS SUMMARY | 2025-02-10 15:16 | XMS_ITS | Encounter Summary ---
Author Organization [facility] Address [address] [facility] [place] [address] Care Team Providers Care Lan Manager Name Role Phone Chitra Collazo MD Primary Care Provider [phone] Encounter Details Date Type Department Care Team (Late st Contact Info) Description 01/06/[address] [facility] [address] [facility] [place] [address] Princess Queen LPN [address] [facility] [place] [address] Social History Tobacco Use Types Packs/Day Years Used Date Smoking Tobacco: Never Assessed Comments Unknown Sex and Gender Information Value Date Recorded Sex Assigned at Not on file Legal Sex Female 7:20 PM EDT Gender Identity Not on file Sexual Orientation Not on file documented as of this encounter Plan of Treatment Upcoming Encounters Date Type Department Care Team (Late st Contact Info) Description 02/14/2026 9:00 AM EDT Procedure Visit [facility] [address] [facility] [place] [phone] Luis Manuel Kirk DO [address] [facility] [place] [id number] documented as of this encounter Procedures Procedure Name Priority Date/Time Associated Diagnosis Comments PAP SMEAR Routine 12/24/2023 12:00 AM EDT documented in this encounter Results * Pap Smear (12/24/2023 12:00 AM EDT) Swab Cervical swab / Unknown us Yelena Nurse [facility] LAB CYTOLOGY ORDERABLES Final Result EXTERNAL LAB documented in this encounter Visit Diagnoses Not on filedocumented in this encounter Care Teams Lan Manager Relationship Specialty Start Date End Date Chitra Collazo MD [address] [place] [address] PCP - General Family Medicine 11/07/23 documented as of this encounter
--- OUTSIDE RECORDS SUMMARY | 2025-02-10 15:17 | XMS_ITS | Encounter Summary ---
Author Organization [facility] Address [address] [facility] [place] [address] Care Team Providers Care Elastic Tape Inserter Name Role Phone Chitra Collazo MD Primary Care Provider [phone] Encounter Details Date Type Department Care Team (Late Contact Info) Description 02/10/2025 Bamboo flowsheet [facility] [address] [facility] [place] [address] Luis Manuel Kirk DO [facility] [place], [place] [address] Social History Tobacco Use Types Packs/Day Years [...] EDT Procedure Visit [facility] [address] [place] [address] Luis Manuel Kirk DO [facility] [place] [id number] documented as of this encounter Visit Diagnoses Not on filedocumented in this encounter Care Teams Elastic Tape Inserter Relationship Specialty Start Date End Date Chitra Collazo MD [address] [place] [address] PCP - General Family Medicine 11/07/23 documented as of this encounter
--- OUTSIDE RECORDS SUMMARY | 2025-02-10 15:17 | XMS_ITS | Encounter Summary ---
Author Organization [facility] Address [address] [facility] [place] [address] Care Team Providers Care Photoengraving Finisher Name Role Phone Chitra Collazo MD Primary Care Provider [phone] Encounter Details Date Type Department Care Team (Late Contact Info) Description 08/19/2024 Orders Only [facility] [address] [place] [address] Chelsie Carey LPN [address] [place] [address] Social History Tobacco Use Types Packs/Day Years [...] EDT Procedure Visit [facility] [address] [place] [address] Luis Manuel Kirk DO [address] [facility] [address] [place], [place] [id number] documented as of this encounter Procedures Procedure Name Priority Date/Time Associated Diagnosis Comments PAP SMEAR Routine 08/03/2024 12:00 AM EST documented in this encounter Results * Pap Smear (08/03/2024 12:00 AM EST) Swab Cervical swab / Unknown us Luis Manuel Kirk DO LAB CYTOLOGY ORDERABLES Final Re sult EXTERNAL LAB documented in this encounter Visit Diagnoses Not on filedocumented in this encounter Care Teams Photoengraving Finisher Relationship Specialty Start Date End Date Chitra Collazo MD [address] [place] [address] PCP - General Family Medicine 11/07/23 documented as of this encounter
--- OUTSIDE RECORDS SUMMARY | 2025-02-10 15:17 | XMS_ITS | Clinical Summary ---
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 Resolved Problems Problem Noted Date Diagnosed Date Resolved Date Hemolytic anemia 05/01/2014 05/06/2014 Immunizations Immunization Administration Dates Next Due influenza (IIV3) vaccine, tr ivalent, PF (AFLURIA, FLUARIX, FLULAVAL, FLUVIRIN, FLUZONE) 04/25/2024 influenza (IIV4) vaccine, ag e 6 mo - 64 yr, quadrivalent, PF (AFLURIA, FLUARIX, FLULAVAL, FLUZONE) 04/29/2014 meningococcal (MenACWY-D) va ccine, quadrivalent (MENACTRA) 04/29/2014 pneumococcal polysaccharide (PPV23) vaccine, 23 valent (PNEUMOVAX 23) 04/29/2014 Social History Tobacco Use Types Packs/Day Years Used Date Smoking Tobacco: Never Smokeless Tobacco: Never Alcohol Use Standard Drinks/Week Comments Not Asked 0 (1 standard drink = 0.6 oz pur e alcohol) Comments No Sex and Gender Information Value Date Recorded Sex Assigned at Not on file Legal Sex Female 9:00 AM EDT Gender Identity Not on file Sexual Orientation Not on file Last Filed Vital Signs Vital Sign Reading Time Taken Comments Blood Pressure 124/62 04/08/2015 2:22 PM EDT Pulse 78 04/08/2015 2:22 PM EDT Temperature 36.6 C (97.9 F) 04/08/2015 2:22 PM EDT Respiratory Rate 20 04/08/2015 2:22 PM EDT Oxygen Saturation 98% 04/08/2015 2:22 PM EDT Inhaled Oxygen Concentration - - Weight 56.8 kg (125 lb 3.5 oz) 04/08/2015 2:22 P M EDT Height 160 cm (5' 2.99 ) 04/08/2015 2:22 PM EDT Body Mass Index 22.19 04/08/2015 2:22 PM EDT Plan of Treatment Health Maintenance Due Date Last Done Comments Peds To Adult Transition Ini tial Discussion 2013 Peds To Adult Transition Annual Assessment 2015 HPV Vaccine (1 - 3-dose series) 2016 Meningococcal B Vaccine (1 o f 2 - Standard) 2017 Anxiety Screening 2019 Chlamydia Screening (18-24) 2019 Depression Screening 2019 GC (Gonorrhea) Screening (18-24) 2019 HIV Screening 2019 Hepatitis C Screening 2019 DTaP,Tdap,Td Vaccine (1 - Tdap) 2020 Hepatitis B Vaccine (1 of 3 - 19+ 3-dose series) 2020 Cervical Cancer Screening 2022 Influenza Vaccine (#1) 2025 04/25/2024, 2013 [place] [id number] [facility] [employer] Care Teams Director Of Convention Services Relationship Specialty Start Date End Date Chitra Collazo MD [address] [place] [address] PCP - General Family Medicine 04/22/14
--- OUTSIDE RECORDS SUMMARY | 2025-02-10 15:17 | XMS_ITS | Clinical Summary ---
Author Organization [facility] Healthcare Address [address] [facility] [place] [place] [address] Care Team Providers Care Molder Foam Rubber Name Role Phone Chitra Collazo MD Primary Care Provider [phone] Allergies No known active allergies Medications norgestimate-eth inyl estradiol (Tri Femynor) 0.18/0.215/0.25 MG-35 MCG tabletIndication s:Encounter for IUD removal Take 1 tablet by mouth Daily 28 tablet 12 09/14/2024 Active Active Problems Problem Noted Date Diagnosed Date LGSIL of cervix of undetermined significance Encounters Date Type Department Care Team Description 02/10/2025 1:40 PM EDT Procedure Visit [facility] OB [address] [place], [place] [address] [place] [address] Luis Manuel Kirk DO Well woman exam with routine gynecological exam 02/10/2025 Bamboo flowsheet [facility] OB [address] [place] [address] [place] [phone] Luis Manuel Kirk DO from Last 3 Months Social History Tobacco Use Types Packs/Day Years Used Date Smoking Tobacco: Never Smokeless Tobacco: Never Tobacco Cessation:Counseling Given: Not Answered Alcohol Use Standard Drinks/Week Comments Never 0 [...] oz) 02/10/2025 1:48 P M EDT Height 167.6 cm (5' 6 ) 01/14/2024 8:49 AM EDT Body Mass Index 27.66 01/14/2024 8:49 AM EDT Plan of Treatment Upcoming Encounters Date Type Department Care Team (Late st Contact Info) Description 02/14/2026 9:00 AM EDT Procedure Visit [facility] [address] [facility] [place] [address] Luis Manuel Kirk, [address] [facility] [address] [place] [place], [place] [phone] Health Maintenance Due Date Last Done Comments Influenza Vaccine (#1) 2025 , 04/23/2022, 05/02/2021, [place] [id number] [facility] Care Teams Molder Foam Rubber Relationship Specialty Start Date End Date Chitra Collazo MD [address] [place] [address] PCP - General Family Medicine 11/07/23
--- OUTSIDE RECORDS SUMMARY | 2025-02-10 15:17 | XMS_ITS | Encounter Summary ---
Author Organization [facility] Address [address] [place] [address] Care Team Providers Care Research Physicist Name Role Phone Chitra Collazo MD Primary Care Provider [phone] Encounter Details Date Type Department Care Team (Late st Contact Info) Description 05/10/2023 Clinisync Result Encounter [facility] External Department Unsolicited Serjio Kirk, DO [address] [address] Social History Tobacco Use Types Packs/Day Years [...] EDT Procedure Visit [facility] [address] [place] [id number] Serjio Kirk, DO [address] [place] [address] documented as of this encounter Procedures Procedure Name Priority Date/Time Associated Diagnosis Comments US PELVIS W/ TRANSVAGINAL 05/10/2023 12:01 PM EDT documented in this encounter Results * US PELVIS W/ TRANSVAGINAL (05/10/2023 12:01 PM EDT) Anatomical Region Laterality Modality Other 05/10/2023 12:0 1 PM EDT Narrative 05/10/2023 12:01 PM EDT [place] [id number] Ultrasound Report Signed Patient: Dinora Ann MR#: [id number] : 2000 Acct:[id number] Age/Sex: 22 / F ADM Date: 05/10/23 Loc: US Attending Dr: Serjio Kirk D.O. Ordering Physician: Serjio Kirk D.O. Date of Service: 05/10/23 Procedure(s): US pelvis w/ transvaginal Accession Number(s): [id number] cc: Serjio Kirk D.O.; Physician,Non-Staff [place] [id number] Patient Name: DINORA ANN MRN: [id number] date: 2000 Sex: F Assigned Patient Location: US Current Patient Location: US Accession/Order Number: [id number] Exam Date: 05/10/2023 10:30 Report Date: 05/10/2023 12:01 At the request of: SERJIO KIRK Procedure: US pelvis w/ transvaginal EXAMINATION: US pelvis w/ transvaginal HISTORY: Dysfunctional Uterine Bleeding N93.8, Pelvic PAin R10.2 COMPARISON: No relevant comparison available. FINDINGS: The uterus is normal in size, contour and echotexture measuring 6.2 x 4.5 x 2.7 cm. Anteverted. Linear hyperechogenicity within the endometrial cavity consistent with normally positioned IUD. The endometrium measures 2.7 mm thick. Small amount of endometrial fluid, nonspecific The right ovary is normal measuring 2.4 x 2.9 x 1.5 cm. Normal color and Doppler flow. Left ovary is normal in appearance measuring 3.1 x 2.2 x 2.4 cm. Normal color and Doppler flow No free fluid US/US pelvis w/ transvaginal IMPRESSION: Normally positioned IUD Electronically authenticated by: PHILIPP LAU Date: 05/10/2023 12:01 Dictated By: Philipp Lau M.D. Signed By: 05/10/23 1204 DD/ 1201 TD/TT: Game Developer: Procedure Note Radiology, Radiologist, - 05/10/2023 [place] [address] Ultrasound Report Signed Patient: Dinora Ann RMR#: [id number] : 2000Acct:[id number] Age/Sex: 22 / FADM Date: 05/10/23 Loc: US Attending Dr: Serjio Kirk D.O. Ordering Physician: Serjio Kirk D.O. Date of Service: 05/10/23 Procedure(s): US pelvis w/ transvaginal Accession Number(s): [id number] cc: Serjio Kirk D.O.; Physician,Non-Staff [place] [id number] Patient Name: DINORA ANN MRN: [id number] date: 2000 Sex: F Assigned Patient Location: US Current Patient Location: US Accession/Order Number: [id number] Exam Date: 05/10/2023 10:30 Report Date: 05/10/2023 12:01 At the request of: SERJIO KIRK Procedure: US pelvis w/ transvaginal EXAMINATION: US pelvis w/ transvaginal HISTORY: Dysfunctional Uterine Bleeding N93.8, Pelvic PAin R10.2 COMPARISON: No relevant comparison available. FINDINGS: The uterus is normal in size, contour and echotexture measuring 6.2 x 4.5x 2.7 cm. Anteverted. Linear hyperechogenicity within the endometrial cavity consistent with normally positioned IUD. The endometrium measures 2.7 mm thick. Small amount of endometrial fluid, nonspecific The right ovary is normal measuring 2.4 x 2.9 x 1.5 cm. Normal color and Doppler flow. Left ovary is normal in appearance measuring 3.1 x 2.2 x 2.4 cm. Normalcolor and Doppler flow No free fluid US/US pelvis w/ transvaginal IMPRESSION: Normally positioned IUD Electronically authenticated by: PHILIPP Curry: 05/10/2023 12:01 Dictated By: Philipp Lau M.D. Signed By:05/10/23 1204 DD/ 120 TD/TT: Game Developer: us Serjio Villaro DO [facility] Final Result documented in this encounter Visit Diagnoses Not on filedocumented in this encounter Care Teams Research Physicist Relationship Specialty Start Date End Date Chitra Collazo MD [address] [place] [address] PCP - General Family Medicine 11/07/23 documented as of this encounter
--- OUTSIDE RECORDS SUMMARY | 2025-02-10 15:17 | XMS_ITS | Clinical Summary ---
Author Organization [facility] Address [address] [place] [address], [address] [place] [address] Care Team Providers Care Pewter Finisher Name Role Phone Chitra Collazo MD Primary Care Provider Allergies No known active allergies Medications albuterol sulfate HFA (PROVENTIL;VENT TAYLOR;PROAIR) 108 (90 Base) MCG/ACT inhaler Inhale 2 puffs into the lungs every 4 hours as needed for Wheezing 8 g 09/25/2022 Active Active Problems No known active problems Social History Tobacco Use Types Packs/Day Years Used Date Smoking Tobacco: Never Assessed Comments Unknown Sex and Gender Information Value Date Recorded Sex Assigned at Not on file Legal Sex Female 9:35 AM EST Gender Identity Not on file Sexual Orientation Not on file Last Filed Vital Signs Vital Sign Reading Time Taken Comments Blood Pressure 124/76 09/25/2022 9:43 AM EST Pulse 66 09/25/2022 9:43 AM EST Temperature 36.4 C (97.5 F) 09/25/2022 9:47 AM EST Respiratory Rate 16 09/25/2022 9:43 AM EST Oxygen Saturation 100% 09/25/2022 9:43 AM EST Inhaled Oxygen Concentration - - Weight 72.6 kg (160 lb) 09/25/2022 9:43 AM EST Height 167.6 cm (5' 6 ) 09/25/2022 9:43 AM EST Body Mass Index 25.82 09/25/2022 9:43 AM EST Plan of Treatment Health Maintenance Due Date Last Done Comments Depression Screen 2013 HIV screen 2016 HPV vaccine (1 - 3-dose series) 2016 Chlamydia/GC screen 2017 Meningococcal B vaccine (1 of 2 - Standard) 2017 Hepatitis C screen 2019 Pap smear 2022 DTaP/Tdap/Td vaccine (7 - Td or Tdap) 02/03/2024 02/02/2014, 12/27/2006, 09/14/2002, Additional history exists COVID-19 Vaccine (2 - season) 2024 02/01/2022 Flu vaccine (#1) 02/19/2025 04/23/2022, 06/2021, 04/29/2014 Hib vaccine Completed 09/14/2002, 12/21, 2001, Additional history exists Polio vaccine Completed 12/27/2006, 12/21, 2001, Additional history exists Pneumococcal 0-49 years Vaccine Aged Out 04/29/2014, 2001, 2001 No longer eligible based on patient's age to complete this topic Meningococcal (ACWY) vaccine Completed 02/11/2019, 04/29/2014 Hepatitis B vaccine Completed 06/12/2021, 05/03/2021, 01/16/2002, Additional history exists Varicella vaccine Completed 06/12/2021, 05/10/2021 Hepatitis A vaccine Aged Out No longe r eligible based on patient's age to complete this topic Insurance Care Teams Pewter Finisher Relationship Specialty Start Date End Date Chitra Collazo MD [address] [place] [address] PCP - General Family Medicine 09/25/22
[2025-02-12 13:08] LABS: Age Gdln ACOG Testing Note (.); IGP, rfx Aptima HPV ASCU Note (.)
== END 2025-02-10 15:15 | disposition home or self-care (01) ==
LOC: LAB 15:14
PROVIDERS: PCP Family Medicine; Visit Provider Obstetrics & Gynecology
DX: Z01.419 Encounter for gynecological examination (general) (routine) without abnormal findings (principal)
CPT/HCPCS: 88175